=== PATIENT | female | born 1975 | race Caucasian/White ===

== ENCOUNTER 2017-08-19 15:42 | Inpatient (IN) | payer MEDICAID, OTHER ==
[~2017-08-19] VITALS: Ht 154.9 cm; Wt 71.4 kg
[~2017-08-19 15:42] MED LIST: AUGM875T28 PO; Abilify PO; BUPR15TA PO; ESCI20TA PO; LEXA1TAB PO; LEXA1TAB2 PO; LISI10TA4 PO; LISI2.5T3 GT; NECO1TAB9 PO; SERO1TAB PO; TOPA50TA8 PO; TRAZ-136 PO; VIST25CA PO
[2017-08-19] MEDS ORDERED: BUPR15TA PO (15:59)
[2017-08-19] MEDS ORDERED: BUSP5TA PO (15:59)
[2017-08-19] MEDS ORDERED: HYDR12CA PO (16:00)
[2017-08-19 18:05] LABS: MEAN CORPUSCULAR HEMOGLOBIN 34.2 pg (27.0-33.0); MEAN CORPUSCULAR HGB CONC 33.6 g/dl (32.0-36.5); MEAN CORPUSCULAR VOLUME 101.8 fl (80.0-96.0); PLATELET COUNT, AUTOMATED 354 10^3/uL (150-450); RED CELL DISTRIBUTION WIDTH 13.1 % (11.5-14.5); WHITE BLOOD COUNT 10.4 10^3/uL (4.0-10.0)
[2017-08-19] MEDS ORDERED: TYLE1TAB5 PO (18:29)
[2017-08-19] MEDS ORDERED: HYDR-3363 PO (18:29)
[2017-08-19 18:41] LABS: ALBUMIN 3.7 GM/DL (3.2-5.2); ALBUMIN/GLOBULIN RATIO 1.06 (1.00-1.93); ALKALINE PHOSPHATASE 80 U/L (45-117); ALT/SGPT 37 U/L (12-78); ANION GAP 11 MEQ/L (8-16); AST/SGOT 18 U/L (7-37); BILIRUBIN,DIRECT 0.1 MG/DL (0.0-0.2); BILIRUBIN,TOTAL 0.4 MG/DL (0.2-1.0); BLOOD UREA NITROGEN 14 MG/DL (7-18); CALCIUM LEVEL 8.6 MG/DL (8.5-10.1); CARBON DIOXIDE LEVEL 21 MEQ/L (21-32); CHLORIDE LEVEL 104 MEQ/L (98-107); CREATININE FOR GFR 0.91 MG/DL (0.55-1.02); GLOMERULAR FILTRATION RATE > 60.0 (>60); GLUCOSE, FASTING 71 MG/DL (70-105); POTASSIUM SERUM 3.9 MEQ/L (3.5-5.1); SODIUM LEVEL 136 MEQ/L (136-145); TOTAL PROTEIN 7.2 GM/DL (6.4-8.2)
[2017-08-19 19:23] LABS: METHADONE URINE NEGATIVE (NEGATIVE)
[2017-08-19] MEDS ORDERED: QUEtiapine FUMARATE 50 MG TAB PO SCH (21:00)
[2017-08-19] MEDS ORDERED: MOM 30ML SUSPENSION UDC PO PRN (22:15)
[2017-08-19] MEDS ORDERED: MAALOX 30 ML SUSP *UDC PO PRN (22:15)
[2017-08-19] MEDS ORDERED: diphenhydrAMINE 50 MG CAP PO PRN (22:15)
[2017-08-20 06:42] VITALS: BP 120/72
[2017-08-20] MEDS: hydroCHLOROthiazide 12.5 MG CAPSULE PO SCH (08:29)
[2017-08-20] MEDS: ESCITALOPRAM OXALATE 10 MG TAB (LEXAPRO) PO SCH (11:07)
--- NOTE | 2017-08-20 12:12 | MHHPEPDOC ---
General Date Of Admission: Aug 19, 2017 Legal Status: 9.39 Chief Complaint "I didn't do anything wrong, I don't need to be here" History of Present Illness HISTORY OF THE PRESENT ILLNESS: Patient is a 41 -year-old , female, who says she came to the ED hospital because her PO sent her to the ED because she didn't feel that Buspar wasn't working and she told the ED that it was not helping her, because it made her feel "high" and she thinks she shoplifted because she was on Buspar. This happened two weeks ago. She said that she didn' t have an appointment with Dr. Alicia until the 30, but she says she thinks she is not dangerous" she only was out of medications. She says she doesn't feel she 's bipolar, she thinks she is a very anxious person. She has a history of anorexia. Psychiatric Review of Systems Depression (2 or more weeks): insomnia/hypersomnia, decreased energy, difficulty concentrating, appetite changes, psychomotor changes Janis (4 or more days of): expansive mood, decreased need for sleep, still with energy, talkativity, pressured, flight of ideas, distractibility, goal- directed activities, engages in risky behavior Psychosis: denies PTSD: denies Anxiety: situational anxiety Anxiety/ 6 months or more of: restlessness, keyed up, easily fatigued, difficulty concentrating, irritability, muscle tension, sleep disturbance Past Psychiatric History Previous Psychiatric Diagnosis: She has been diagnosed as having bipolar disorder Previous Psychiatric Admissions: She was admitted here two years ago after her fiance and she spent two weeks here Suicide Attempts: Denied Psychiatric Follow-up: She follows up [facility] with Dr. Alicia and has been receiving Wellbutrin, Seroquel and Buspar Psychiatric medications: Wellbutrin, Seroquel, Buspar, Hydroxyzine Past Medical History Medical Problems Mother has type 2 diabetes, she thinks all of her family has anxiety. There's depression and cancer on her mother's side of the family Head Injury: No Seizures: Yes Hospitalizations: Yes Surgeries: Yes Family Medical/Psychiatric HX Psychiatric Disorders: Yes Addiction: No Suicide Attemps/Completions: Yes Addiction History alcohol Social History Childhood: She reports a good childhood, denies abuse, she says her family is loving, happy Abuse/Trauma: Denies, but she says she doesn't enjoy sex, it's painful for her, when she has gone to the OBGyn and the doctor has asked her if she has been raped at any time because she is always tense when she gets examined. she says she doesn't remember parts of her childhood but she can't hink of any family member touching her or abusing her but she used to go to a friend's house when she was a little kid and her friend used to talk a lot about sex even when they were just 10 years old. her mother picked her up once, from her friend's house and she told her that she was never allowed to go back in there, so she doesn't know if her mother noticed something weird going. She says she's coming from an [place] mormon family and probably the mormon beliefes influenced her sexuality but she said she became very promiscuous when she became a teen ager when she rebelled against all of this Current Living Situation: She lives with her 10 year old son. Education: HS and college ed. She has a masters Degree Employment: Employed Social Support: Her parents Legal: She has a Die Maintenance Technician for a DUI on May/2015 Marital: She's not currently , she has a 10 year old son. Mental Status Examination General Appearance: disheveled Build: average Demeanor: preoccupied, very figety Eye Contact: intense Activity: anxious Behavior: cooperative, agitated, restless Speech: rapid, pressured, normal volume Mood: anxious Affect: labile, anxious Thought Process: circumstantial Thought Content (Delusions): none reported Thought Content (Other): none reported Thought Content (Aggressive): none reported Perception (Hallucinations): none reported Perception (Other): none reported Cognition (Impairment of): none reported Cognition(Intelligence Est.): average Oriented: Awake, Alert, Oriented times three Insight: poor Judgment: Poor Diagnoses 1. Bypolar Disorder, manic 2. Generalized anxiety disorder Assessment Patient is extremely labile, her makeup is inappropriate, she has rapid speech, but she doesn't feel she is bipolar, she feels she is anxious. She is circumstantial, has an elated/labile mood. will give her Abilify, will restart her on Wellbutrin and Seroquel. patient can be discharged on Tuesday. Initial Treatment Plan 1. atluther is on a 9.39, involuntary status status. 2. Complete history was obtained. 3. With patients permission, family will be contacted and database will be expanded. 4. Patients medication regimen will be reviewed and changed accordingly. 5. Patient will be provided with protected environment. 6. Patient will be treated with individual, group, and milieu therapies. 7. Patient will receive supportive psych-education. 8. Discharge planning will commence immediately. 9. Outpatient follow-up treatment will be strongly recommended. 10. The initial treatment plan will focus initially on: * Depression. * Risk for suicide. * Substance abuse. ESTIMATED LENGTH OF STAY: 5-7DAYS. TIME SPENT COUNSELING AND COORDINATING INITIAL CARE: 60minutes. Vital Signs Vital Signs Date Time Temp Pulse Resp B/P (MAP) Pulse Ox O2 Delivery O2 Flow Rate FiO2 08/20/17 06:42 99.5 95 120/72 (88) Room Air 08/19/17 20:47 18 100 Laboratory Data 24H Labs Laboratory Tests 2 08/19/17 17:49: Nucleated Red Blood Cells % (auto) 0.0, Anion Gap 11, Glomerular Filtration Rate > 60.0, Calcium Level 8.6, Aspartate Amino Transf (AST/SGOT) 18, Alanine Aminotransferase (ALT/SGPT) 37, Alkaline Phosphatase 80, Total Bilirubin 0.4, Direct Bilirubin 0.1, Total Protein 7.2, Albumin 3.7, Albumin/Globulin Ratio 1.06, Thyroid Stimulating Hormone (TSH) 1.020, Salicylates Level < 1.7L, Urine Amphetamines Screen NEGATIVE, Urine Benzodiazepines Screen POSITIVEH, Urine Opiates Screen NEGATIVE, Urine Methadone Screen NEGATIVE, Acetaminophen Level 6.8L, Urine Barbiturates Screen NEGATIVE, Urine Phencyclidine Screen NEGATIVE, Urine Cocaine Metabolite Screen NEGATIVE, Urine Cannabinoids Screen NEGATIVE, Ethyl Alcohol Level 0.003 CBC/BMP Laboratory Tests 08/19/17 17:49 Red Blood Count 3.33 L, Mean Corpuscular Volume 101.8 H, Mean Corpuscular Hemoglobin 34.2 H, Mean Corpuscular Hemoglobin Concent 33.6, Red Cell Distribution Width 13.1 Medications Scheduled (Necon 1-35 mg-Mcg) 1 Tab Tab, 1 TAB PO DAILY, (Reported) Bupropion HCl (Wellbutrin Sr) 150 Mg Tabcr, 150 MG PO BID, (Reported) Buspirone HCl (Buspirone HCl) 5 Mg Tab, 5 MG PO BID, (Reported) Escitalopram Oxalate (Escitalopram Oxalate) 20 Mg Tab, 20 MG PO DAILY, (Reported ) Hydrochlorothiazide (Hydrochlorothiazide) 12.5 Mg Cap, 12.5 MG PO DAILY, ( Reported) Quetiapine Fumerate (Seroquel) 100 Mg Tab, 100 MG PO QHS, (Reported) Scheduled PRN (Tylenol Pm Extra Strength 500-25 mg) 1 Tab Tab, 2 TAB PO QHS PRN for SLEEP, ( Reported) Hydroxyzine HCl (Hydroxyzine HCl) 25 Mg Tab, 25 MG PO DAILY PRN for ANXIETY, ( Reported) Allergies Coded Allergies: No Known Allergies (Unverified , 11/11/14) BLANCA MARTÍNEZ MD Aug 20, 2017 12:12
[2017-08-20] MEDS: ACETAMINOPHEN TAB 650MG DOSE (2X325MG) PO PRN (17:26)
[2017-08-20 18:00] VITALS: BP 131/62
[2017-08-20] MEDS: buPROPion **SR TABLET** (ZYBAN) 150MG PO SCH (20:37)
[2017-08-20] MEDS: QUEtiapine FUMARATE 100 MG TAB PO SCH (20:38)
[2017-08-21 06:29] VITALS: BP 121/58
[2017-08-21] MEDS: buPROPion **SR TABLET** (ZYBAN) 150MG PO SCH ×2 (08:38→20:58)
[2017-08-21] MEDS: ACETAMINOPHEN TAB 650MG DOSE (2X325MG) PO PRN (08:39)
[2017-08-21] MEDS: ESCITALOPRAM OXALATE 10 MG TAB (LEXAPRO) PO SCH (08:39)
[2017-08-21] MEDS: hydroCHLOROthiazide 12.5 MG CAPSULE PO SCH (08:39)
[2017-08-21] MEDS ORDERED: INFLUENZA QUADRIVALENT PF VACCINE 0.5ML SYRINGE (90686) IM ONE (09:00)
[2017-08-21 18:00] VITALS: BP 127/61
--- NOTE | 2017-08-21 18:30 | MHIPNPDOC ---
[facility] Progress Note Progress Note DATE OF SERVICE: 08/21/17 DATE OF SERVICE: 08/21/17 HISTORY: Patient was brought to the hospital because she said she had been feeling different since she had taken Buspar. She reported extreme anxiety and she presented with pressured speech at the ED. She also reported an episode of shoplifting about 2 weeks ago and she blamed it on Buspar. She was extremely labile and tearful. VITAL SIGNS: See below. NEW TEST RESULTS: N/A CURRENT MEDICATIONS: See below. General Appearance: Dressed in personal clothes, cooperative, with good eye contact, appears stated age. Speech: rapid, pressured, normal volume Mood: she's not labile today. Not tearful and not anxious. Affect: Less anxious, calmer Thought Process: Linear, logical Thought Content (Delusions): none reported Thought Content (Other): none reported Thought Content (Aggressive): none reported Perception (Hallucinations): none reported Perception (Other): none reported Cognition (Impairment of): none reported Cognition(Intelligence Est.): average Oriented: Awake, Alert, Oriented times three Insight: Improving Judgment: Improving Diagnoses 1. Bipolar Disorder, manic 2. Generalized anxiety disorder Assement/Plan Patient is less labile, more calm. she's not tearful, not anxious.she says she has had a good day today and she knows her son is doing well. She's having a good response to medication. She probably will be leaving home soon. Vital Signs Vital Signs Date Time Temp Pulse Resp B/P (MAP) Pulse Ox O2 Delivery O2 Flow Rate FiO2 08/21/17 06:29 97.7 101 16 121/58 (79) 08/20/17 06:42 Room Air 08/19/17 20:47 100 Current Medications Current Medications Acetaminophen (Tylenol Tab) 650 mg Q6HP PRN PO HEADACHE or DISCOMFORT Last administered on 08/21/17 08:39; Start 08/19/17 at 22:15; Stop 09/18/17 at 22 :14 Al Hydrox/Mg Hydrox/Simethicone (Mylanta) 30 ml Q4HP PRN PO HEARTBURN/ INDIGESTION; Start 08/19/17 at 22:15; Stop 09/18/17 at 22:14 Aripiprazole (AbiLIFY) 2.5 mg BID PO Last administered on 08/20/17 08:29; Start 08/19/17 at 21:00; Stop 08/20/17 at 12:13; Status DC Aripiprazole (AbiLIFY) 5 mg BID PO Last administered on 08/21/17 08:39; Start 08/20/17 at 21:00; Stop 09/19/17 at 20:59 Bupropion HCl (Zyban, Wellbutrin Sr) 150 mg BID PO Last administered on 08:38; Start 08/20/17 at 21:00; Stop 09/19/17 at 20:59 Diphenhydramine HCl (Benadryl) 50 mg Q4HP PRN PO ANXIETY/AGITATION; Start at 22:15; Stop 09/18/17 at 22:14 Escitalopram Oxalate (Lexapro) 20 mg DAILY PO Last administered on 08/21/17 08:39; Start 08/20/17 at 09:00; Stop 09/19/17 at 08:59 Home Med (Med Rec Complete!) ASDIRECTED XX ; Start 08/19/17 at 18:30; Stop at 18:31; Status DC Hydrochlorothiazide (Hydrodiuril) 12.5 mg DAILY PO Last administered on 08:39; Start 08/20/17 at 09:00; Stop 09/19/17 at 08:59 Magnesium Hydroxide (Milk Of Magnesia) 30 ml DAILYPRN PRN PO CONSTIPATION; Start 08/19/17 at 22:15; Stop 09/18/17 at 22:14 Quetiapine Fumarate (SEROquel) 150 mg QHS PO Last administered on 08/19/17 22 :48; Start 08/19/17 at 21:00; Stop 08/20/17 at 12:14; Status DC Quetiapine Fumarate (SEROquel) 250 mg QHS PO Last administered on 08/20/17 20 :38; Start 08/20/17 at 21:00; Stop 09/19/17 at 20:59 Allergies Coded Allergies: No Known Allergies (Unverified , 11/11/14) BLANCA MARTÍNEZ MD Aug 21, 2017 18:30
[2017-08-21] MEDS: QUEtiapine FUMARATE 100 MG TAB PO SCH (20:58)
[2017-08-22 06:44] VITALS: BP 131/60
[2017-08-22] MEDS: buPROPion **SR TABLET** (ZYBAN) 150MG PO SCH (08:23)
[2017-08-22] MEDS: ESCITALOPRAM OXALATE 10 MG TAB (LEXAPRO) PO SCH (08:23)
[2017-08-22] MEDS: hydroCHLOROthiazide 12.5 MG CAPSULE PO SCH (08:23)
--- NOTE | 2017-08-22 10:06 | HPE ---
DATE OF ADMISSION: 08/19/2017 HISTORY OF THE PRESENT ILLNESS: Please refer to psychiatric history and evaluation for further details on this admission. This examination and history is intended for medical issues history, which may need treatment, followup or consult on this 41-year-old female. ALLERGIES: NO KNOWN DRUG ALLERGIES. SOCIAL HISTORY: She is single, lives with her 10-year-old son. EtOH she has a history of alcohol abuse. She had none for 7 years then in 2014 she relapsed and drank again. She had a driving under the influence in May of 2015, currently none. PAST MEDICAL HISTORY: Anxiety. Depression. Hypertension. PAST SURGICAL HISTORY: section. HOME MEDICATIONS: - Wellbutrin SR 150 mg by mouth twice a day - buspirone 5 mg by mouth twice a day - escitalopram 20 mg by mouth daily - hydroxyzine 20 mg by mouth daily as needed anxiety - Seroquel 100 mg by mouth at bedtime - Necon one by mouth daily - Tylenol PM extra strength 500/25 mg two by mouth at bedtime as needed for sleep - hydrochlorothiazide 12.5 mg by mouth daily LABORATORY STUDIES: CBC WBC was 10.4, hemoglobin 11.4, hematocrit 33.9, MCV was elevated at 101.8, CMP was normal. Toxicology screen showed benzodiazepines positive. REVIEW OF SYSTEMS: 10-systems review was done and was unremarkable. PHYSICAL EXAMINATION: GENERAL: 41-year-old female in no acute distress. VITAL SIGNS: Height 61 inches, weight 71.36 kg, BMI 29.7, blood pressure 128/72, pulse 95, temperature 98.7. The patient is alert and oriented times three. HEENT: Pupils equal and react to light. EOM's are intact. Cornea and sclerae are clear. Conjunctivae are normal. No facial asymmetry. Pharynx, tongue and gums are pink and moist. Tongue is midline. NECK: Supple without lymphadenopathy. No thyromegaly. No goiter. CHEST: Clear to auscultation without wheeze or retraction. HEART: Regular. ABDOMEN: Benign. Bowel sounds are positive. /RECTAL: Not done. EXTREMITIES: Show equal strength. Full [id number]. No cyanosis, clubbing or edema. Peripheral pulses are equal and palpable bilaterally. SKIN: Warm and dry. IMPRESSION/PLAN: 1. Psychiatric plan per psychiatry. 2. History of hypertension. Continue hydrochlorothiazide. 3. EKG on file. Shows sinus tachycardia 101. 4. No acute medical issues.
[2017-08-22 10:58] LABS: FOLATE > 24.0 NG/ML (>5.4)
[2017-08-22] MEDS ORDERED: QUET1TAB8 PO (11:31)
[2017-08-22] MEDS ORDERED: ARIP5TA PO (11:31)
--- NOTE | 2017-08-22 16:24 | MHDS ---
DATE OF ADMISSION: 08/19/2017 DATE OF DISCHARGE: 08/22/2017 LEGAL STATUS ON ADMISSION: 9.39 legal status. HISTORY OF THE PRESENT ILLNESS: The following information is according to the initial evaluation of Dr. Avendaño, her progress note and my own progress note. On admission, Dr. Aevndaño, wrote the patient is a 41-year-old female who came to the emergency department because her special service officer sent her since she did not feel that BuSpar was working, and she told doctors that she was feeling high and also she thinks she shoplifted because she was on BuSpar. This happened 2 weeks ago. Also said that she did not have an appointment with Dr. Alicia until 09/01/2017. She also stated that she does not feel she has bipolar disorder but that she is an "anxious person." She has a history of anorexia. She was admitted for observation and treatment. LABS ON ADMISSION: Her CBC showed WBCs of 10.4, RBC 3.33, hemoglobin of 11.4, hematocrit of 33.9, MCV of 101.8 and MCH of 34.2. The rest of the CBC was normal. CMP within normal limits. TSH within normal limits. Urine drug screen was positive for benzodiazepine. Blood alcohol level was negative. HOSPITAL COURSE: After the first evaluation, Dr. Avendaño started the patient on Abilify 5 mg by mouth twice a day, Wellbutrin 150 mg by mouth twice a day, Seroquel 250 mg by mouth nightly and Lexapro 20 mg by mouth every morning. With this medication, the patient was stabilized. The patient had no complications during this hospital admission. On 08/22/2017, the patient told me that she was feeling much better and that she could continue her treatment on an outpatient basis. The patient had no side effects from the medication. At this point, the patient denies suicidal or homicidal ideation. Denies auditory or visual hallucinations or delusions, so she does not meet criteria for involuntary hospitalization at this time. MEDICATIONS AT DISCHARGE: - Abilify 5 mg by mouth twice a day - Zyban 150 mg by mouth twice a day - Seroquel 250 mg by mouth nightly - Lexapro 20 mg by mouth every morning MENTAL STATUS EXAMINATION: At discharge, the patient is dressed in [facility]. The patient is cooperative. The patient's speech is slightly pressured but is coherent and is spontaneous. The patient has good eye contact. Mood is slightly anxious. Affect is appropriate and congruent with mood. The patient is oriented to time, place, person and situation. Maintains attention and concentration fairly. Instant recall, recent and remote memory are intact. Thought processes are coherent, logical and goal directed. The patient does not have auditory or visual hallucinations. The patient does not have paranoid, persecutory, somatic, grandiose or hindu delusions. The patient is denying suicidal or homicidal ideation. Judgment and insight are fair. DISCHARGE DIAGNOSES: AXIS I: Bipolar disorder, manic episode. Generalized anxiety disorder. AXIS II: Deferred. AXIS III: None acute. CONDITION AT DISCHARGE: Stable. The patient denies auditory or visual hallucinations. No evidence of delusions. The patient denies suicidal or homicidal ideation. INSTRUCTIONS TO THE PATIENT: The patient is to continue taking her medications as prescribed and followup appointments. She is advised to maintain absolute sobriety from drugs and alcohol. The patient has a scheduled appointment for medication management, individual psychotherapy and primary care physician.
== END 2017-08-22 16:15 | disposition home or self-care (01) | DRG 753 ==
LOC: M ED 15:42 → M ED INP 17:22 → M PSY 20:57
PROVIDERS: ADMIT Psychiatry & Neurology Psychiatry; ATTEND Psychiatry & Neurology Psychiatry
DX: F31.9 Bipolar disorder, unspecified (principal); I10 Essential (primary) hypertension; F41.1 Generalized anxiety disorder; Z79.899 Other long term (current) drug therapy

== ENCOUNTER → 2018-03-15 | Outpatient (CLI) | payer OTHER ==
[2018-03-15 09:44] LABS: BASO # 0.1 10^3/uL (0.0-0.2); BASO % 0.9 % (0.0-1.0); EOS # 0.3 10^3/uL (0.0-0.50); EOS % 5.1 % (0.0-3.0); HEMOGLOBIN 12.7 g/dl (12.0-15.5); IMMATURE GRANULOCYTE % 0.2 % (0-3.0); LYMPH # 3.4 10^3/uL (1.5-4.5); LYMPH % 61.7 % (24.0-44.0); MEAN CORPUSCULAR HEMOGLOBIN 32.8 pg (27.0-33.0); MEAN CORPUSCULAR HGB CONC 33.4 g/dl (32.0-36.5); MEAN CORPUSCULAR VOLUME 98.2 fl (80.0-96.0); MONO # 0.4 10^3/uL (0.0-0.8); MONO % 7.2 % (0.0-5.0); NEUTROPHILS # 1.4 10^3/uL (1.8-7.7); NEUTROPHILS % 24.9 % (36.0-66.0); PLATELET COUNT, AUTOMATED 297 10^3/uL (150-450); RED BLOOD COUNT 3.87 10^6/uL (4.00-5.40); WHITE BLOOD COUNT 5.5 10^3/uL (4.0-10.0)
[2018-03-15 09:57] LABS: CORTISOL AM 11.7 UG/DL (4.3-22.4); TOTAL 25(OH) VITAMIN D 19.9 NG/ML (30.0-100.0)
[2018-03-15 09:58] LABS: CHOLESTEROL LEVEL 197 MG/DL (<200); CHOLESTEROL RISK RATIO 3.862 (<5); FREE T4 0.55 NG/DL (0.76-1.46); HDL CHOLESTEROL 51 MG/DL (>40); LDL CHOLESTEROL 103.6 MG/DL (<100); NON-HDL-C 146 MG/DL; TRIGLYCERIDES LEVEL 212 MG/DL (<150)
[2018-03-15 10:34] LABS: ESTIMATED AVERAGE GLUCOSE 97 MG/DL (60-110)
[2018-03-17 14:14] LABS: Methylmalonic Acid 178 nmol/L (0-378)
== END ==
LOC: M SMT 08:23
DX: R00.0 Tachycardia, unspecified (principal); F41.8 Other specified anxiety disorders; Z13.1 Encounter for screening for diabetes mellitus; Z13.220 Encounter for screening for lipoid disorders
CPT/HCPCS: 84443

== ENCOUNTER → 2018-04-20 | Outpatient (REF) | payer OTHER ==
[2018-04-20 12:03] LABS: BASO % 0.6 % (0.0-1.0); EOS # 0.2 10^3/uL (0.0-0.50); EOS % 3.9 % (0.0-3.0); HEMATOCRIT 39.1 % (36.0-47.0); HEMOGLOBIN 12.9 g/dl (12.0-15.5); IMMATURE GRANULOCYTE % 0.2 % (0-3.0); LYMPH % 55.5 % (24.0-44.0); MEAN CORPUSCULAR HEMOGLOBIN 32.5 pg (27.0-33.0); MEAN CORPUSCULAR VOLUME 98.5 fl (80.0-96.0); MONO # 0.6 10^3/uL (0.0-0.8); MONO % 10.3 % (0.0-5.0); NEUTROPHILS # 1.6 10^3/uL (1.8-7.7); NEUTROPHILS % 29.5 % (36.0-66.0); PLATELET COUNT, AUTOMATED 323 10^3/uL (150-450); RED BLOOD COUNT 3.97 10^6/uL (4.00-5.40); WHITE BLOOD COUNT 5.4 10^3/uL (4.0-10.0)
[2018-04-20 12:40] LABS: CHOLESTEROL LEVEL 218 MG/DL (<200); CHOLESTEROL RISK RATIO 3.114 (<5); FREE T4 0.74 NG/DL (0.76-1.46); HDL CHOLESTEROL 70 MG/DL (>40); NON-HDL-C 148 MG/DL; TRIGLYCERIDES LEVEL 105 MG/DL (<150)
[2018-04-20 12:41] LABS: CORTISOL AM 18.6 UG/DL (4.3-22.4)
[2018-04-20 12:43] LABS: TOTAL 25(OH) VITAMIN D 63.8 NG/ML (30.0-100.0)
[2018-04-20 13:53] LABS: ESTIMATED AVERAGE GLUCOSE 91 MG/DL (60-110); HEMOGLOBIN A1c 4.8 %
[2018-04-26 00:08] LABS: Methylmalonic Acid 249 nmol/L (0-378)
== END ==
LOC: M SFHCPLAZ 08:35
DX: R00.0 Tachycardia, unspecified (principal); F41.8 Other specified anxiety disorders; Z13.1 Encounter for screening for diabetes mellitus; Z13.220 Encounter for screening for lipoid disorders

== ENCOUNTER → 2018-05-29 | Outpatient (REF) | payer OTHER ==
[2018-05-29 12:10] LABS: FREE T4 0.56 NG/DL (0.76-1.46)
[2018-05-29 15:03] LABS: FOLATE 21.6 NG/ML; VITAMIN B12 LEVEL 570 PG/ML
== END ==
LOC: M SFHCPLAZ 09:17
DX: E03.9 Hypothyroidism, unspecified (principal); D75.89 Other specified diseases of blood and blood-forming organs
CPT/HCPCS: 82746

== ENCOUNTER → 2018-06-26 | Outpatient (REF) | payer OTHER ==
[2018-06-26 13:26] LABS: TOTAL 25(OH) VITAMIN D 37.8 NG/ML (30.0-100.0)
[2018-06-26 13:38] LABS: FREE T4 0.56 NG/DL (0.76-1.46)
== END ==
LOC: M SFHCPLAZ 09:04
DX: E03.9 Hypothyroidism, unspecified (principal); E55.9 Vitamin D deficiency, unspecified

== ENCOUNTER → 2018-08-28 | Outpatient (CLI) | payer OTHER | LOC: M SLEEP HO 12:58 | DX: G47.30 Sleep apnea, unspecified (principal) ==

== ENCOUNTER → 2018-11-09 | Outpatient (REF) | payer OTHER ==
[~2018-11-09] MED LIST changes: +ABIL10TA9 PO; +ARIP5TA PO; +BUSP5TA PO; +HYDR-3363 PO; +HYDR12CA PO; -LISI2.5T3 GT; +LISI2.5T5 GT; +NECO1TAB2 PO; -NECO1TAB9 PO; +QUET1TAB8 PO; -TRAZ-136 PO; +TRAZ-163 PO; +TYLE1TAB5 PO
[2018-11-09 10:31] LABS: BASO % 0.7 % (0.0-1.0); EOS # 0.2 10^3/uL (0.0-0.50); EOS % 4.1 % (0.0-3.0); HEMATOCRIT 39.4 % (36.0-47.0); HEMOGLOBIN 13.1 g/dl (12.0-15.5); LYMPH # 2.6 10^3/uL (1.5-4.5); LYMPH % 48.1 % (24.0-44.0); MEAN CORPUSCULAR HEMOGLOBIN 32.5 pg (27.0-33.0); MEAN CORPUSCULAR HGB CONC 33.2 g/dl (32.0-36.5); MEAN CORPUSCULAR VOLUME 97.8 fl (80.0-96.0); MONO # 0.4 10^3/uL (0.0-0.8); MONO % 8.2 % (0.0-5.0); NEUTROPHILS # 2.1 10^3/uL (1.8-7.7); NEUTROPHILS % 38.7 % (36.0-66.0); PLATELET COUNT, AUTOMATED 307 10^3/uL (150-450); RED BLOOD COUNT 4.03 10^6/uL (4.00-5.40); WHITE BLOOD COUNT 5.3 10^3/uL (4.0-10.0)
[2018-11-09 11:02] LABS: ALBUMIN 4.2 GM/DL (3.2-5.2); ALT/SGPT 21 U/L (12-78); BILIRUBIN,TOTAL 0.4 MG/DL (0.2-1.0); BLOOD UREA NITROGEN 14 MG/DL (7-18); CALCIUM LEVEL 8.8 MG/DL (8.5-10.1); CARBON DIOXIDE LEVEL 24 MEQ/L (21-32); CHLORIDE LEVEL 107 MEQ/L (98-107); CREATININE FOR GFR 0.89 MG/DL (0.55-1.30); FREE T4 1.08 NG/DL (0.76-1.46); GLOMERULAR FILTRATION RATE > 60.0 (>58); GLUCOSE, FASTING 82 MG/DL (70-100); POTASSIUM SERUM 3.8 MEQ/L (3.5-5.1); SODIUM LEVEL 138 MEQ/L (136-145); THYROID STIMULATING HORMONE 0.043 uIU/ML (0.358-3.740); TOTAL PROTEIN 7.1 GM/DL (6.4-8.2)
== END ==
LOC: M SFHCPLAZ 08:44
PROVIDERS: ATTEND Family Medicine
DX: Z51.81 Encounter for therapeutic drug level monitoring (principal); E03.9 Hypothyroidism, unspecified

== ENCOUNTER → 2018-11-29 | Outpatient (REF) | payer OTHER ==
[2018-11-29 16:27] LABS: FREE T3 2.3 PG/ML (2.2-4.0); FREE T4 1.21 NG/DL (0.76-1.46); THYROID STIMULATING HORMONE 0.031 uIU/ML (0.358-3.740)
== END ==
LOC: M SFHCPLAZ 14:17
PROVIDERS: ATTEND Family Medicine
DX: Z83.2 Family history of diseases of the blood and blood-forming organs and certain disorders involving the immune mechanism (principal); E03.9 Hypothyroidism, unspecified

== ENCOUNTER → 2019-03-13 | Outpatient (REF) | payer OTHER ==
[~2019-03-13] MED LIST changes: +ARIP1TAB6 PO; -ARIP5TA PO; +LISI-1046 GT; -LISI2.5T5 GT
== END ==
LOC: M SFHCWAGY 13:08
PROVIDERS: ATTEND Family Medicine
DX: Z12.4 Encounter for screening for malignant neoplasm of cervix (principal)

== ENCOUNTER → 2019-04-27 | Outpatient (CLI) | payer OTHER ==
[2019-04-27 20:28] LABS: BLOOD UREA NITROGEN 16 MG/DL (7-18); CALCIUM LEVEL 8.9 MG/DL (8.5-10.1); CARBON DIOXIDE LEVEL 23 MEQ/L (21-32); CHLORIDE LEVEL 112 MEQ/L (98-107); CHOLESTEROL LEVEL 176 MG/DL (<200); CHOLESTEROL RISK RATIO 2.626 (<5); CREATININE FOR GFR 0.96 MG/DL (0.55-1.30); GLOMERULAR FILTRATION RATE > 60.0 (>58); GLUCOSE, FASTING 85 MG/DL (70-100); HDL CHOLESTEROL 67 MG/DL (>40); LDL CHOLESTEROL 93 MG/DL (<100); NON-HDL-C 109 MG/DL; POTASSIUM SERUM 4.4 MEQ/L (3.5-5.1); SODIUM LEVEL 141 MEQ/L (136-145); TRIGLYCERIDES LEVEL 81 MG/DL (<150)
[2019-04-27 20:53] LABS: HEMOGLOBIN A1c 4.9 %
[2019-04-27 21:16] LABS: HIV 1&2 SCREEN CENTAUR NEGATIVE (NEGATIVE)
[2019-04-27 22:02] LABS: CHLAMYDIA DNA AMPLIFICATION NEGATIVE (NEGATIVE); GC DNA AMPLIFICATION NEGATIVE (NEGATIVE)
== END ==
LOC: M WUC 17:38
PROVIDERS: ATTEND Family Medicine
DX: Z20.2 Contact with and (suspected) exposure to infections with a predominantly sexual mode of transmission (principal); Z13.1 Encounter for screening for diabetes mellitus; Z13.220 Encounter for screening for lipoid disorders; R30.0 Dysuria

== ENCOUNTER → 2019-06-27 | Outpatient (CLI) | payer MEDICAID | LOC: M OUTALCOH 08:28 | PROVIDERS: ATTEND Psychiatry & Neurology Psychiatry | DX: Z03.89 Encounter for observation for other suspected diseases and conditions ruled out (principal) ==

== ENCOUNTER → 2019-07-05 | Outpatient (REF) | payer MEDICAID, OTHER ==
[2019-07-06 10:45] LABS: AMORPHOUS SEDIMENT SMALL (NEGATIVE); APPEARANCE, URINE CLOUDY (CLEAR); BACTERIA, URINE AUTO 1+ (NEGATIVE); BILIRUBIN, URINE AUTO NEGATIVE (NEGATIVE); BLOOD, URINE BLOOD 2+ (NEGATIVE); CALCIUM OXALATE CRYSTALS MODERATE; COLOR, URINE YELLOW (YELLOW); GLUCOSE, URINE (UA) AUTO NEGATIVE (NEGATIVE); KETONE, URINE AUTO NEGATIVE (NEGATIVE); LEUKOCYTE ESTERASE, URINE AUTO TRACE (NEGATIVE); MUCUS, URINE SMALL (NEGATIVE); NITRITE, URINE AUTO POSITIVE (NEGATIVE); PROTEIN, URINE AUTO 2+ mg/dL (NEGATIVE); RBC, URINE AUTO 42 /HPF (0-3); SPECIFIC GRAVITY URINE AUTO 1.021 (1.002-1.035); SQUAMOUS EPITHELIAL CELL UR AU 6 /HPF (0-6); WBC, URINE AUTO 32 /HPF (0-3)
== END ==
LOC: M SFHCPLAZ 10:20
PROVIDERS: ATTEND Physician Assistant Medical
DX: R35.0 Frequency of micturition (principal)

== ENCOUNTER 2019-07-13 10:26 | Outpatient (RCR) | payer MEDICAID | END 2019-08-02 | LOC: M OUTALCOH 10:26 | PROVIDERS: ATTEND Psychiatry & Neurology Psychiatry | DX: Z03.89 Encounter for observation for other suspected diseases and conditions ruled out (principal) ==

== ENCOUNTER 2019-10-08 19:06 | Emergency (ER) | payer MEDICAID, OTHER ==
[~2019-10-08] VITALS: Ht 154.9 cm; Wt 61.4 kg
[~2019-10-08 19:06] MED LIST changes: -TRAZ-163 PO; +TRAZ-257 PO
[2019-10-08] MEDS ORDERED: TOPI50TA9 PO (19:19)
[2019-10-08] MEDS ORDERED: LEVO75TA4 PO (19:19)
[2019-10-08] MEDS ORDERED: PROP10TA56 PO (19:19)
[2019-10-08] MEDS ORDERED: DESV50TA3 PO (19:19)
[2019-10-08] MEDS ORDERED: TRAZ-252 PO (19:19)
[2019-10-08] MEDS ORDERED: MACR100C43 PO (20:55)
[2019-10-08] MEDS ORDERED: PYRI1TAB5 PO (20:55)
[2019-10-08 21:00] VITALS: BP 134/69
[2019-10-08] MEDS ORDERED: NITROFURANTOIN (MACROBID) 100 MG CAP PO ONE (21:00)
[2019-10-08] MEDS ORDERED: PHENAZOPYRIDINE 100 MG TAB PO ONE (21:00)
== END 2019-10-08 21:08 | disposition home or self-care (01) ==
LOC: M ED 19:06
DX: N30.91 Cystitis, unspecified with hematuria (principal); I10 Essential (primary) hypertension; F31.9 Bipolar disorder, unspecified; F41.9 Anxiety disorder, unspecified; Z79.899 Other long term (current) drug therapy

== ENCOUNTER → 2019-11-08 | Outpatient (REF) | payer OTHER ==
[~2019-11-08] MED LIST changes: +DESV50TA3 PO; +LEVO75TA4 PO; +MACR100C43 PO; +PROP10TA56 PO; +PYRI1TAB5 PO; +TOPI50TA9 PO; +TRAZ-252 PO
[2019-11-08 14:17] LABS: APPEARANCE, URINE CLOUDY (CLEAR); BACTERIA, URINE AUTO 2+ (NEGATIVE); BILIRUBIN, URINE AUTO NEGATIVE (NEGATIVE); BLOOD, URINE BLOOD NEGATIVE (NEGATIVE); COLOR, URINE YELLOW (YELLOW); GLUCOSE, URINE (UA) AUTO NEGATIVE (NEGATIVE); KETONE, URINE AUTO TRACE mg/dL (NEGATIVE); LEUKOCYTE ESTERASE, URINE AUTO 1+ (NEGATIVE); MUCUS, URINE SMALL (NEGATIVE); NITRITE, URINE AUTO NEGATIVE (NEGATIVE); PROTEIN, URINE AUTO 1+ mg/dL (NEGATIVE); RBC, URINE AUTO 4 /HPF (0-3); SPECIFIC GRAVITY URINE AUTO 1.028 (1.002-1.035); SQUAMOUS EPITHELIAL CELL UR AU 7 /HPF (0-6); WBC, URINE AUTO 41 /HPF (0-3)
== END ==
LOC: M LAB REF 12:58
PROVIDERS: ATTEND Physician Assistant
DX: N39.0 Urinary tract infection, site not specified (principal)

== ENCOUNTER 2020-04-17 18:21 | Emergency (ER) | payer OTHER ==
[~2020-04-17] VITALS: Ht 154.9 cm; Wt 65.8 kg
[~2020-04-17 18:21] MED LIST changes: -LISI-1046 GT; +LISI2.5T2 GT; +QUET100T2 PO; -QUET1TAB8 PO
[2020-04-17 18:22] VITALS: BP 115/65
[2020-04-17] MEDS ORDERED: ARIP1TAB6 (18:28)
[2020-04-17] MEDS ORDERED: LAMO25TA4 (18:28)
[2020-04-17] MEDS ORDERED: TRI-TAB16 (18:28)
[2020-04-17] MEDS ORDERED: MACR100C43 PO (19:38)
[2020-04-17] MEDS ORDERED: NITROFURANTOIN (MACROBID) 100 MG CAP PO ONE (19:45)
[2020-04-20] MEDS ORDERED: BACT800T5 PO (08:11)
== END 2020-04-17 19:51 | disposition home or self-care (01) ==
LOC: M ED 18:21
DX: N39.0 Urinary tract infection, site not specified (principal); Z79.899 Other long term (current) drug therapy

== ENCOUNTER → 2020-06-22 | Outpatient (REF) | payer OTHER ==
[~2020-06-22] MED LIST changes: +ARIP1TAB6; +BACT800T5 PO; +LAMO25TA4; +TRI-TAB16
[2020-06-22 15:07] LABS: APPEARANCE, URINE MANUAL CLOUDY (CLEAR); COLOR, URINE MANUAL AMBER (YELLOW)
[2020-06-22 15:08] LABS: BILIRUBIN, URINE MANUAL OBSCURED (NEGATIVE); BLOOD URINE MANUAL OBSCURED (NEGATIVE); GLUCOSE, URINE (UA) MANUAL OBSCURED mg/dL (NEGATIVE); KETONE, URINE MANUAL OBSCURED mg/dL (NEGATIVE); LEUKOCYTE ESTERASE, URINE MAN OBSCURED (NEGATIVE); NITRITE, URINE MANUAL OBSCURED (NEGATIVE); PH,URINE MAN OBSCURED UNITS (5.0 - 7.0); PROTEIN, URINE MANUAL OBSCURED mg/dL (NEGATIVE); SPECIFIC GRAVITY,URINE MANUAL 1.021 (1.002-1.035); UROBILINOGEN, URINE MANUAL OBSCURED mg/dl (NORMAL)
[2020-06-22 15:17] LABS: BACTERIA, URINE LARGE AMOUNT; SQUAMOUS EPITHELIAL CELL URINE LARGE AMOUNT /hpf (SMALL AMT); WBC, URINE TNTC /hpf (0-3)
[2020-06-22 15:18] LABS: HYALINE CAST, URINE NONE SEEN /lpf (0-1); MUCUS, URINE LARGE AMOUNT (NEGATIVE)
== END ==
LOC: M LAB REF 13:00
PROVIDERS: ATTEND Physician Assistant Medical
DX: N39.0 Urinary tract infection, site not specified (principal)

== ENCOUNTER → 2020-07-31 | Outpatient (REF) | payer OTHER ==
[2020-07-31 16:07] LABS: ALBUMIN 3.8 GM/DL (3.2-5.2); ALT/SGPT 19 U/L (12-78); BILIRUBIN,TOTAL 0.3 MG/DL (0.2-1.0); BLOOD UREA NITROGEN 9 MG/DL (7-18); CALCIUM LEVEL 9.4 MG/DL (8.5-10.1); CARBON DIOXIDE LEVEL 29 MEQ/L (21-32); CHLORIDE LEVEL 102 MEQ/L (98-107); CHOLESTEROL LEVEL 255 MG/DL (<200); CHOLESTEROL RISK RATIO 3.148 (<5); CREATININE FOR GFR 0.92 MG/DL (0.55-1.30); FREE T4 1.04 NG/DL (0.76-1.46); GLOMERULAR FILTRATION RATE > 60.0 (>58); GLUCOSE, FASTING 78 MG/DL (70-100); HDL CHOLESTEROL 81 MG/DL (>40); LDL CHOLESTEROL 145 MG/DL (<100); NON-HDL-C 174 MG/DL; POTASSIUM SERUM 4.3 MEQ/L (3.5-5.1); SODIUM LEVEL 136 MEQ/L (136-145); TOTAL PROTEIN 7.4 GM/DL (6.4-8.2); TRIGLYCERIDES LEVEL 147 MG/DL (<150)
[2020-07-31 16:10] LABS: TOTAL 25(OH) VITAMIN D 30.5 NG/ML (30.0-100.0)
== END ==
LOC: M SFHCPLAZ 13:38
PROVIDERS: ATTEND Physician Assistant
DX: E78.00 Pure hypercholesterolemia, unspecified (principal); E03.9 Hypothyroidism, unspecified; E55.9 Vitamin D deficiency, unspecified

== ENCOUNTER → 2020-10-15 | Outpatient (REF) | payer OTHER ==
[~2020-10-15] MED LIST changes: -ESCI20TA PO; +ESCI20TA16 PO
[2020-10-15 18:51] LABS: FREE T4 1.03 NG/DL (0.76-1.46); THYROID STIMULATING HORMONE 1.37 uIU/ML (0.358-3.740)
== END ==
LOC: M PLALAB 14:17
PROVIDERS: ATTEND Physician Assistant
DX: E03.9 Hypothyroidism, unspecified (principal)

== ENCOUNTER → 2021-06-19 | Outpatient (REF) | payer OTHER ==
[~2021-06-19] MED LIST changes: +LISI10TA22 PO; -LISI10TA4 PO; -LISI2.5T2 GT; +LISI2.5T9 GT
== END ==
LOC: M LAB REF 21:13
PROVIDERS: ATTEND Physician Assistant
DX: R30.0 Dysuria (principal)

== ENCOUNTER → 2022-02-05 | Outpatient (CLI) | payer OTHER ==
[2022-02-05 17:25] LABS: BASO # 0.1 10^3/uL (0.0-0.2); BASO % 0.7 % (0.0-1.0); EOS # 0.2 10^3/uL (0.0-0.5); EOS % 2.1 % (0.0-3.0); HEMATOCRIT 41.7 % (36.0-47.0); HEMOGLOBIN 13.5 g/dl (12.0-15.5); LYMPH # 3.8 10^3/uL (1.5-5.0); MEAN CORPUSCULAR HGB CONC 32.4 g/dl (32.0-36.5); MEAN CORPUSCULAR VOLUME 111.2 fl (80.0-96.0); MONO # 0.6 10^3/uL (0.0-0.8); MONO % 7.6 % (2.0-8.0); NEUTROPHILS # 3.3 10^3/uL (1.5-8.5); NEUTROPHILS % 41.5 % (36.0-66.0); PLATELET COUNT, AUTOMATED 517 10^3/uL (150-450); RED BLOOD COUNT 3.75 10^6/uL (4.00-5.40); WHITE BLOOD COUNT 8.1 10^3/uL (4.0-10.0)
[2022-02-05 17:47] LABS: HEMOGLOBIN A1c 4.7 %
[2022-02-05 18:01] LABS: ALBUMIN 3.7 GM/DL (3.2-5.2); ALT/SGPT 25 U/L (12-78); BILIRUBIN,TOTAL 0.5 MG/DL (0.2-1.0); BLOOD UREA NITROGEN 14 MG/DL (7-18); CALCIUM LEVEL 8.9 MG/DL (8.5-10.1); CARBON DIOXIDE LEVEL 17 MEQ/L (21-32); CHLORIDE LEVEL 108 MEQ/L (98-107); CREATININE FOR GFR 0.82 MG/DL (0.55-1.30); GLOMERULAR FILTRATION RATE > 60.0 (>58); GLUCOSE, FASTING 85 MG/DL (70-100); POTASSIUM SERUM 4.3 MEQ/L (3.5-5.1); SODIUM LEVEL 137 MEQ/L (136-145); TOTAL PROTEIN 7.2 GM/DL (6.4-8.2)
== END ==
LOC: M PLALAB 15:31
PROVIDERS: ATTEND Physician Assistant
DX: R06.02 Shortness of breath (principal); R63.0 Anorexia; E55.9 Vitamin D deficiency, unspecified; Z68.32 Body mass index [BMI] 32.0-32.9, adult

== ENCOUNTER → 2022-02-15 | Outpatient (REF) | payer OTHER | LOC: M SFHCPLAZ 15:06 | PROVIDERS: ATTEND Physician Assistant | DX: R63.0 Anorexia (principal) ==

== ENCOUNTER 2022-02-24 15:47 | Emergency (ER) | payer OTHER ==
[~2022-02-24] VITALS: Ht 154.9 cm; Wt 75.0 kg
[2022-02-24] MEDS ORDERED: OMEP-173 PO (16:19)
[2022-02-24] MEDS ORDERED: BUPR150T12 (16:19)
[2022-02-24 21:09] VITALS: BP 114/72
[2022-02-24 21:57] LABS: BASO # 0.1 10^3/uL (0.0-0.2); BASO % 0.8 % (0.0-1.0); EOS # 0.2 10^3/uL (0.0-0.5); EOS % 1.8 % (0.0-3.0); HEMATOCRIT 41.6 % (36.0-47.0); HEMOGLOBIN 13.9 g/dl (12.0-15.5); LYMPH # 3.4 10^3/uL (1.5-5.0); MEAN CORPUSCULAR HEMOGLOBIN 37.6 pg (27.0-33.0); MEAN CORPUSCULAR HGB CONC 33.4 g/dl (32.0-36.5); MEAN CORPUSCULAR VOLUME 112.4 fl (80.0-96.0); MONO # 0.8 10^3/uL (0.0-0.8); MONO % 9.1 % (2.0-8.0); NEUTROPHILS # 4.2 10^3/uL (1.5-8.5); PLATELET COUNT, AUTOMATED 453 10^3/uL (150-450); WHITE BLOOD COUNT 8.8 10^3/uL (4.0-10.0)
[2022-02-24] MEDS ORDERED: GI COCKTAIL 50ML BTL(HYOSCYAMINE/MAALOX/LIDOCAINE VISCOUS)(1:3:1) PO ONE (22:15)
[2022-02-24] MEDS ORDERED: NS 1,000 ML IV ONE (22:15)
[2022-02-24] MEDS ORDERED: METOCLOPRAMIDE INJ 10MG/2ML VIAL (J2765 PER 1) IV ONE (22:15)
[2022-02-24] MEDS ORDERED: SUCRALFATE 1 GM TAB PO ONE (22:15)
[2022-02-24 22:34] LABS: ALBUMIN 3.8 GM/DL (3.2-5.2); BILIRUBIN,DIRECT 0.2 MG/DL (0.0-0.2); BILIRUBIN,TOTAL 0.8 MG/DL (0.2-1.0); CALCIUM LEVEL 9.8 MG/DL (8.5-10.1); CREATININE FOR GFR 1.1 MG/DL (0.55-1.30); GLOMERULAR FILTRATION RATE 57.4 (>58); POTASSIUM SERUM 4.9 MEQ/L (3.5-5.1); TOTAL PROTEIN 7.5 GM/DL (6.4-8.2)
[2022-02-24] MEDS ORDERED: ISOVUE-370 76% 100ML VIAL As Ordered ONE (22:46)
[2022-02-25] MEDS ORDERED: NS 1,000 ML IV ONE (00:40)
[2022-02-25] MEDS ORDERED: PROMETHAZINE 25 MG TAB PO ONE (00:40)
[2022-02-25] MEDS ORDERED: PROM25TA12 PO (01:43)
== END 2022-02-25 02:14 | disposition home or self-care (01) ==
LOC: M ED 15:47
DX: U07.1 COVID-19 (principal); K80.20 Calculus of gallbladder without cholecystitis without obstruction; F41.9 Anxiety disorder, unspecified; F31.9 Bipolar disorder, unspecified; Z79.3 Long term (current) use of hormonal contraceptives; Z79.899 Other long term (current) drug therapy
CPT/HCPCS: 74177; 76705; 80048; 80076; 83690; 85025; 87486; 87581; 87633; 87798; 96361; 96374; 99284; J2765; Q9967

== ENCOUNTER → 2022-08-06 | Outpatient (CLI) | payer OTHER ==
[~2022-08-06] MED LIST changes: +BUPR150T12; +OMEP-173 PO; +PROM25TA12 PO
[2022-08-06 14:10] LABS: HEMATOCRIT 34.3 % (36.0-47.0); HEMOGLOBIN 11.2 g/dl (12.0-15.5); MEAN CORPUSCULAR HEMOGLOBIN 40.1 pg (27.0-33.0); MEAN CORPUSCULAR HGB CONC 32.7 g/dl (32.0-36.5); PLATELET COUNT, AUTOMATED 502 10^3/uL (150-450); RED BLOOD COUNT 2.79 10^6/uL (4.00-5.40); WHITE BLOOD COUNT 10.6 10^3/uL (4.0-10.0)
[2022-08-06 14:49] LABS: MEAN CORPUSCULAR VOLUME 122.9 fl (80.0-96.0)
[2022-08-06 15:29] LABS: LYMPHOCYTES 21 % (16-44); METAMYELOCYTES 2 % (0-0); MONOCYTES 4 % (0-5); MYELOCYTES 2 % (0-0); NEUTROPHILS 66 % (28-66)
[2022-08-06 15:30] LABS: ANISOCYTOSIS 1+; POLYCHROMASIA 1+
[2022-08-06 15:31] LABS: HYPOCHROMASIA 1+; PLATELET ESTIMATE INCREASED (NORMAL)
[2022-08-06 16:39] LABS: FOLATE 5.1 NG/ML
[2022-08-06 17:28] LABS: ALBUMIN 2.7 GM/DL (3.2-5.2); BILIRUBIN,DIRECT 0.1 MG/DL (0.0-0.2); BILIRUBIN,TOTAL 0.2 MG/DL (0.2-1.0); THYROID STIMULATING HORMONE 1.53 uIU/ML (0.358-3.740); TOTAL PROTEIN 6.6 GM/DL (6.4-8.2)
== END ==
LOC: M PLALAB 11:04
PROVIDERS: ATTEND Physician Assistant
DX: R06.02 Shortness of breath (principal)

== ENCOUNTER → 2022-08-11 | Outpatient (CLI) | payer OTHER | LOC: M CARPUL 15:06 | PROVIDERS: ATTEND Physician Assistant | DX: R06.02 Shortness of breath (principal) ==

== ENCOUNTER → 2022-08-17 | Outpatient (CLI) | payer OTHER ==
[2022-08-17 20:59] LABS: ALBUMIN 3.4 G/DL (3.2-5.2); BLOOD UREA NITROGEN 7 MG/DL (9-23); CALCIUM LEVEL 8.9 MG/DL (8.5-10.1); CARBON DIOXIDE LEVEL 16 MMOL/L (20-31); CHLORIDE LEVEL 104 MMOL/L (98-107); CREATININE FOR GFR 0.51 MG/DL (0.55-1.30); GLOMERULAR FILTRATION RATE > 60.0 (>58); GLUCOSE, FASTING 80 MG/DL (60-100); LIPASE 184 U/L (12-53); PHOSPHORUS LEVEL 3.4 MG/DL (2.5-4.9); POTASSIUM SERUM 4.6 MMOL/L (3.5-5.1); SODIUM LEVEL 138 MMOL/L (136-145); TOTAL PROTEIN 6.6 GM/DL (6.4-8.2)
[2022-08-20 04:10] LABS: FREE KAPPA LIGHT CHAINS SERUM 27.8 mg/L (3.3-19.4); FREE LAMBDA LIGHT CHAINS SERUM 20.9 mg/L (5.7-26.3); KAPPA/LAMBDA RATIO SERUM 1.33 (0.26-1.65)
== END ==
LOC: M PLALAB 15:03
PROVIDERS: ATTEND Physician Assistant
DX: D75.89 Other specified diseases of blood and blood-forming organs (principal); E83.52 Hypercalcemia; R10.13 Epigastric pain

== ENCOUNTER → 2022-08-31 | Outpatient (REF) | payer OTHER ==
[2022-08-31 19:05] LABS: APPEARANCE, URINE MANUAL HAZY (CLEAR)
[2022-08-31 19:06] LABS: BILIRUBIN, URINE MANUAL OBSCURED (NEGATIVE); BLOOD URINE MANUAL OBSCURED (NEGATIVE); COLOR, URINE MANUAL ORANGE (YELLOW); GLUCOSE, URINE (UA) MANUAL OBSCURED mg/dL (NEGATIVE); KETONE, URINE MANUAL OBSCURED mg/dL (NEGATIVE); LEUKOCYTE ESTERASE, URINE MAN OBSCURED (NEGATIVE); NITRITE, URINE MANUAL OBSCURED (NEGATIVE); PH,URINE MAN OBSCURED UNITS (5.0 - 7.0); PROTEIN, URINE MANUAL OBSCURED mg/dL (NEGATIVE); SPECIFIC GRAVITY,URINE MANUAL 1.026 (1.002-1.035); UROBILINOGEN, URINE MANUAL OBSCURED mg/dl (NORMAL)
[2022-08-31 20:04] LABS: BACTERIA, URINE LARGE AMOUNT; SQUAMOUS EPITHELIAL CELL URINE SMALL AMOUNT /hpf (SMALL AMT); WBC, URINE TNTC /hpf (0-3)
== END ==
LOC: M SFHCPLAZ 17:31
PROVIDERS: ATTEND Physician Assistant
DX: R10.30 Lower abdominal pain, unspecified (principal)

== ENCOUNTER → 2022-09-10 | Outpatient (CLI) | payer OTHER ==
[~2022-09-10] MED LIST changes: +PROHANCE 279.3MG/ML 15ML VIAL ONE
== END ==
LOC: M PLAIMG 07:54
PROVIDERS: ATTEND Physician Assistant
DX: R74.8 Abnormal levels of other serum enzymes (principal); R10.30 Lower abdominal pain, unspecified
CPT/HCPCS: 74183; A9576

== ENCOUNTER → 2022-09-16 | Outpatient (REF) | payer OTHER ==
[~2022-09-16] MED LIST changes: +ARIP1TAB PO; -BUPR150T12; +BUPR150T12 PO; +DESV100T3 PO; +OMEP40CA5 PO; -PROHANCE 279.3MG/ML 15ML VIAL ONE; -TRI-TAB16; +TRI-TAB16 PO
== END ==
LOC: M SFHCPLAZ 12:35
PROVIDERS: ATTEND Physician Assistant
DX: Z53.20 Procedure and treatment not carried out because of patient's decision for unspecified reasons (principal)

== ENCOUNTER 2022-10-25 01:03 | Emergency (ER) | payer OTHER ==
[~2022-10-25] VITALS: Ht 154.9 cm; Wt 59.1 kg
[2022-10-25] MEDS ORDERED: PROMETHAZINE 25MG/ML 1ML VIAL IV ONE (02:05)
[2022-10-25] MEDS ORDERED: MORPHINE 4 MG/ML 1ML VIAL IV PRN (02:05)
[2022-10-25 02:32] LABS: BASO # 0.1 10^3/uL (0.0-0.2); BASO % 0.7 % (0.0-1.0); EOS % 0.1 % (0.0-3.0); HEMATOCRIT 25.8 % (36.0-47.0); LYMPH # 1.8 10^3/uL (1.5-5.0); LYMPH % 9.1 % (24.0-44.0); MEAN CORPUSCULAR HEMOGLOBIN 35.4 pg (27.0-33.0); NEUTROPHILS # 15.3 10^3/uL (1.5-8.5); NEUTROPHILS % 77.9 % (36.0-66.0); PLATELET COUNT, AUTOMATED 611 10^3/uL (150-450); RED BLOOD COUNT 2.26 10^6/uL (4.00-5.40); WHITE BLOOD COUNT 19.6 10^3/uL (4.0-10.0)
[2022-10-25] MEDS ORDERED: NS 1,000 ML IV ONE (02:35)
[2022-10-25 02:51] LABS: LIPASE 16 U/L (12-53)
[2022-10-25 02:53] LABS: BILIRUBIN,DIRECT 0.4 MG/DL (<0.4); CPK CREATINE PHOSPHOKINASE 14.99999 U/L (34-145)
[2022-10-25 02:58] LABS: ALBUMIN 1.6 G/DL (3.2-5.2); ALKALINE PHOSPHATASE 201 U/L (46-116); ALT/SGPT 12 U/L (7.0-40); AST/SGOT 15 U/L (<34); BILIRUBIN,TOTAL 0.6 MG/DL (0.3-1.2); BLOOD UREA NITROGEN 5 MG/DL (9-23); CALCIUM LEVEL 7.5 MG/DL (8.5-10.1); CARBON DIOXIDE LEVEL 29 MMOL/L (20-31); CHLORIDE LEVEL 97 MMOL/L (98-107); CK-MB VALUE MASS < 1.0 NG/ML (<3.6); CREATININE FOR GFR 0.27 MG/DL (0.55-1.30); GLOMERULAR FILTRATION RATE > 60.0 (>58); GLUCOSE, FASTING 93 MG/DL (60-100); POTASSIUM SERUM 2.9 MMOL/L (3.5-5.1); SODIUM LEVEL 139 MMOL/L (136-145); TOTAL PROTEIN 5.4 G/DL (5.7-8.2)
[2022-10-25 03:01] LABS: MEAN CORPUSCULAR VOLUME 114.2 fl (80.0-96.0); MONO # 1.6 10^3/uL (0.0-0.8)
[2022-10-25 03:02] LABS: HCG, SERUM QUALITATIVE NEGATIVE (NEGATIVE)
[2022-10-25 03:04] LABS: PLATELET ESTIMATE INCREASED (NORMAL); POLYCHROMASIA 1+
[2022-10-25 03:05] LABS: ANISOCYTOSIS 1+; HYPOCHROMASIA 1+
[2022-10-25 03:06] LABS: STOMATOCYTES 1+
[2022-10-25 03:20] LABS: MAGNESIUM LEVEL 1.4 MG/DL (1.8-2.4)
[2022-10-25] MEDS ORDERED: KCL 10MEQ/100ML SWI (KRUN) 10 MEQ in IV 1 EA IV ONE (03:20)
[2022-10-25] MEDS ORDERED: ISOVUE-370 76% 100ML VIAL As Ordered ONE (03:27)
[2022-10-25 03:28] LABS: RSV AMPLIFICATION NEGATIVE (NEGATIVE)
[2022-10-25] MEDS ORDERED: MORPHINE SULFATE ORAL SOLN 10 MG/5 ML UD PO ONE (05:30)
[2022-10-25] MEDS ORDERED: ONDANSETRON 4MG ORAL DISINTEGRATING TAB PO ONE (05:30)
[2022-10-25] MEDS ORDERED: MAALOX 30 ML SUSP *UDC PO ONE (06:20)
[2022-10-25] MEDS ORDERED: ONDA4TAB6 PO (07:08)
[2022-10-25] MEDS ORDERED: PROM50TA4 PO (07:08)
[2022-10-25 07:38] VITALS: BP 131/82
[2022-10-26] MEDS ORDERED: ALBU8.5H INH (09:25)
[2022-10-26] MEDS ORDERED: LIDO1ADH10 TOP (09:25)
[2022-10-26] MEDS ORDERED: METR-265 PO (09:25)
[2022-10-26] MEDS ORDERED: MORP10SO2 PO (09:25)
[2022-10-26] MEDS ORDERED: TRI-TAB16 (09:25)
[2022-10-26] MEDS ORDERED: CIPR500T39 PO (09:25)
[2022-10-26] MEDS ORDERED: ONDA4TAB6 PO (12:12)
[2022-10-26] MEDS ORDERED: PROM50TA4 PO (12:12)
== END 2022-10-25 07:43 | disposition home or self-care (01) ==
LOC: M ED 01:03
DX: K85.10 Biliary acute pancreatitis without necrosis or infection (principal); I49.1 Atrial premature depolarization; R00.0 Tachycardia, unspecified; I10 Essential (primary) hypertension; E03.9 Hypothyroidism, unspecified; K21.9 Gastro-esophageal reflux disease without esophagitis; Z79.51 Long term (current) use of inhaled steroids; Z79.83 Long term (current) use of bisphosphonates; Z79.891 Long term (current) use of opiate analgesic; Z79.899 Other long term (current) drug therapy

== ENCOUNTER → 2022-11-11 | Outpatient (REF) | payer OTHER ==
[~2022-11-11] MED LIST changes: +ACET-683 PO; +ALBU8.5H INH; +CALC200T15 PO; +CIPR-249 PO; +CIPR500T39 PO; +CREO24CA PO; +DICL1PAT6 TOP; +IBUP-1022 PO; +LIDO1ADH10 TOP; +LIDO5DIS41 TOP; +MAGN400T2 PO; +METR-265 PO; +MORP10SO2 PO; +NARC1SPR NARES; +ONDA4TAB6 PO; +ONDA4TAB6 SL; +PANT40TA29 PO; +PROM50TA4 PO; +RISATAB3 PO; +TRI-TAB16
[2022-11-11 14:29] LABS: HEMATOCRIT 30.9 % (36.0-47.0); HEMOGLOBIN 9.4 g/dl (12.0-15.5); MEAN CORPUSCULAR HEMOGLOBIN 33.1 pg (27.0-33.0); MEAN CORPUSCULAR HGB CONC 30.4 g/dl (32.0-36.5); MEAN CORPUSCULAR VOLUME 108.8 fl (80.0-96.0); PLATELET COUNT, AUTOMATED 462 10^3/uL (150-450); RED BLOOD COUNT 2.84 10^6/uL (4.00-5.40); WHITE BLOOD COUNT 8.7 10^3/uL (4.0-10.0)
[2022-11-11 15:05] LABS: ALBUMIN 2.7 G/DL (3.2-5.2); ALKALINE PHOSPHATASE 290 U/L (46-116); ALT/SGPT 25 U/L (7.0-40); AST/SGOT 52 U/L (<34); BILIRUBIN,TOTAL 0.4 MG/DL (0.3-1.2); BLOOD UREA NITROGEN 17 MG/DL (9-23); CALCIUM LEVEL 9.1 MG/DL (8.5-10.1); CARBON DIOXIDE LEVEL 28 MMOL/L (20-31); CHLORIDE LEVEL 101 MMOL/L (98-107); CREATININE FOR GFR 0.44 MG/DL (0.55-1.30); GLOMERULAR FILTRATION RATE > 60.0 (>58); GLUCOSE, FASTING 76 MG/DL (60-100); MAGNESIUM LEVEL 2.1 MG/DL (1.8-2.4); PHOSPHORUS LEVEL 5.8 MG/DL (2.5-4.9); SODIUM LEVEL 135 MMOL/L (136-145); TOTAL PROTEIN 6.5 G/DL (5.7-8.2)
== END ==
LOC: M LAB REF 13:57
PROVIDERS: ATTEND Internal Medicine
DX: R04.9 Hemorrhage from respiratory passages, unspecified (principal)

== ENCOUNTER → 2022-11-16 | Outpatient (REF) | payer OTHER ==
[2022-11-16 12:51] LABS: HEMATOCRIT 31.3 % (36.0-47.0); HEMOGLOBIN 9.7 g/dl (12.0-15.5); MEAN CORPUSCULAR HEMOGLOBIN 32.4 pg (27.0-33.0); MEAN CORPUSCULAR VOLUME 104.7 fl (80.0-96.0); PLATELET COUNT, AUTOMATED 454 10^3/uL (150-450); RED BLOOD COUNT 2.99 10^6/uL (4.00-5.40); WHITE BLOOD COUNT 7.6 10^3/uL (4.0-10.0)
[2022-11-16 13:26] LABS: ALBUMIN 2.8 G/DL (3.2-5.2); ALKALINE PHOSPHATASE 271 U/L (46-116); ALT/SGPT 32 U/L (7.0-40); AST/SGOT 28 U/L (<34); BILIRUBIN,TOTAL 0.3 MG/DL (0.3-1.2); BLOOD UREA NITROGEN 18 MG/DL (9-23); CALCIUM LEVEL 9.3 MG/DL (8.5-10.1); CARBON DIOXIDE LEVEL 27 MMOL/L (20-31); CHLORIDE LEVEL 104 MMOL/L (98-107); CREATININE FOR GFR 0.42 MG/DL (0.55-1.30); GLOMERULAR FILTRATION RATE > 60.0 (>58); GLUCOSE, FASTING 94 MG/DL (60-100); POTASSIUM SERUM 4.7 MMOL/L (3.5-5.1); SODIUM LEVEL 139 MMOL/L (136-145); TOTAL PROTEIN 6.4 G/DL (5.7-8.2)
== END ==
LOC: M SHH 12:02
PROVIDERS: ATTEND Internal Medicine
DX: R04.9 Hemorrhage from respiratory passages, unspecified (principal)

== ENCOUNTER → 2022-11-22 | Outpatient (REF) | payer OTHER ==
[2022-11-22 12:55] LABS: HEMATOCRIT 32.8 % (36.0-47.0); HEMOGLOBIN 10.1 g/dl (12.0-15.5); MEAN CORPUSCULAR HEMOGLOBIN 31.4 pg (27.0-33.0); MEAN CORPUSCULAR HGB CONC 30.8 g/dl (32.0-36.5); MEAN CORPUSCULAR VOLUME 101.9 fl (80.0-96.0); PLATELET COUNT, AUTOMATED 502 10^3/uL (150-450); RED BLOOD COUNT 3.22 10^6/uL (4.00-5.40); WHITE BLOOD COUNT 8.5 10^3/uL (4.0-10.0)
[2022-11-22 13:31] LABS: ALBUMIN 2.9 G/DL (3.2-5.2); ALKALINE PHOSPHATASE 304 U/L (46-116); ALT/SGPT 57 U/L (7.0-40); AST/SGOT 46 U/L (<34); BILIRUBIN,TOTAL 0.4 MG/DL (0.3-1.2); BLOOD UREA NITROGEN 20 MG/DL (9-23); CALCIUM LEVEL 9.3 MG/DL (8.5-10.1); CARBON DIOXIDE LEVEL 27 MMOL/L (20-31); CHLORIDE LEVEL 100 MMOL/L (98-107); CREATININE FOR GFR 0.38 MG/DL (0.55-1.30); GLOMERULAR FILTRATION RATE > 60.0 (>58); GLUCOSE, FASTING 95 MG/DL (60-100); PHOSPHORUS LEVEL 6.1 MG/DL (2.5-4.9); POTASSIUM SERUM 4.6 MMOL/L (3.5-5.1); SODIUM LEVEL 135 MMOL/L (136-145); TOTAL PROTEIN 6.6 G/DL (5.7-8.2)
== END ==
LOC: M LAB REF 12:20 → M SHH 12:20
PROVIDERS: ATTEND Internal Medicine
DX: R04.9 Hemorrhage from respiratory passages, unspecified (principal)

== ENCOUNTER → 2022-11-29 | Outpatient (REF) | payer OTHER ==
[2022-11-29 17:10] LABS: HEMOGLOBIN 9.4 g/dl (12.0-15.5); MEAN CORPUSCULAR HEMOGLOBIN 30.9 pg (27.0-33.0); MEAN CORPUSCULAR HGB CONC 30.3 g/dl (32.0-36.5); PLATELET COUNT, AUTOMATED 356 10^3/uL (150-450); RED BLOOD COUNT 3.04 10^6/uL (4.00-5.40); WHITE BLOOD COUNT 7.7 10^3/uL (4.0-10.0)
[2022-11-29 17:41] LABS: ALBUMIN 2.7 G/DL (3.2-5.2); ALKALINE PHOSPHATASE 297 U/L (46-116); ALT/SGPT 48 U/L (7.0-40); AST/SGOT 46 U/L (<34); BILIRUBIN,TOTAL 0.2 MG/DL (0.3-1.2); BLOOD UREA NITROGEN 27 MG/DL (9-23); CALCIUM LEVEL 8.9 MG/DL (8.5-10.1); CARBON DIOXIDE LEVEL 26 MMOL/L (20-31); CHLORIDE LEVEL 102 MMOL/L (98-107); CREATININE FOR GFR 0.53 MG/DL (0.55-1.30); GLOMERULAR FILTRATION RATE > 60.0 (>58); GLUCOSE, FASTING 76 MG/DL (60-100); PHOSPHORUS LEVEL 6.1 MG/DL (2.5-4.9); POTASSIUM SERUM 4.6 MMOL/L (3.5-5.1); SODIUM LEVEL 134 MMOL/L (136-145); TOTAL PROTEIN 5.9 G/DL (5.7-8.2)
== END ==
LOC: M SHH 16:49
PROVIDERS: ATTEND Physician Assistant
DX: E03.9 Hypothyroidism, unspecified (principal); K86.1 Other chronic pancreatitis

== ENCOUNTER 2022-12-01 11:28 | Inpatient (IN) | payer OTHER ==
[~2022-12-01] VITALS: Ht 154.9 cm; Wt 55.7 kg
[~2022-12-01 11:28] MED LIST changes: +TOPI-254 PO; -TOPI50TA9 PO
[2022-12-01 12:45] LABS: PROTHROMBIN TIME 13.4 SECONDS (12.5-14.5)
[2022-12-01 12:46] LABS: BASO % 0.5 % (0.0-1.0); EOS # 0.2 10^3/uL (0.0-0.5); EOS % 2.2 % (0.0-3.0); HEMATOCRIT 30.6 % (36.0-47.0); HEMOGLOBIN 9.7 g/dl (12.0-15.5); LYMPH # 1.7 10^3/uL (1.5-5.0); LYMPH % 20.3 % (24.0-44.0); MEAN CORPUSCULAR HEMOGLOBIN 31.6 pg (27.0-33.0); MEAN CORPUSCULAR HGB CONC 31.7 g/dl (32.0-36.5); MEAN CORPUSCULAR VOLUME 99.7 fl (80.0-96.0); MONO # 0.7 10^3/uL (0.0-0.8); NEUTROPHILS # 5.6 10^3/uL (1.5-8.5); NEUTROPHILS % 68.4 % (36.0-66.0); PLATELET COUNT, AUTOMATED 323 10^3/uL (150-450); RED BLOOD COUNT 3.07 10^6/uL (4.00-5.40); WHITE BLOOD COUNT 8.2 10^3/uL (4.0-10.0)
[2022-12-01] MEDS ORDERED: ISOVUE-370 76% 100ML VIAL As Ordered ONE (12:49)
[2022-12-01] MEDS ORDERED: TRAZ1TAB14 PO (13:24)
[2022-12-01] MEDS ORDERED: FOLI1TAB11 PO (13:24)
[2022-12-01] MEDS ORDERED: IBUP-1022 PO (13:24)
[2022-12-01] MEDS ORDERED: B-1100TA2 PO (13:24)
[2022-12-01] MEDS ORDERED: VITA500064 PO (13:24)
[2022-12-01] MEDS ORDERED: GABA-282 (13:24)
[2022-12-01 13:35] LABS: ETHYL ALCOHOL (ETHANOL) < 0.003 % (0.000-0.010)
[2022-12-01 13:36] LABS: CPK CREATINE PHOSPHOKINASE 28 U/L (34-145)
[2022-12-01 13:55] LABS: ALBUMIN 2.9 G/DL (3.2-5.2); ALKALINE PHOSPHATASE 353 U/L (46-116); ALT/SGPT 59 U/L (7.0-40); AST/SGOT 53 U/L (<34); BILIRUBIN,DIRECT 0.1 MG/DL (<0.4); BILIRUBIN,TOTAL 0.3 MG/DL (0.3-1.2); BLOOD UREA NITROGEN 14 MG/DL (9-23); CALCIUM LEVEL 9.1 MG/DL (8.5-10.1); CARBON DIOXIDE LEVEL 24 MMOL/L (20-31); CHLORIDE LEVEL 105 MMOL/L (98-107); CK-MB VALUE MASS 1.4 NG/ML (<3.6); CREATININE FOR GFR 0.49 MG/DL (0.55-1.30); FREE T4 0.99 NG/DL (0.89-1.76); GLOMERULAR FILTRATION RATE > 60.0 (>58); GLUCOSE, FASTING 87 MG/DL (60-100); POTASSIUM SERUM 3.9 MMOL/L (3.5-5.1); SODIUM LEVEL 140 MMOL/L (136-145); THYROID STIMULATING HORMONE 2.706 uIU/ML (0.55-4.78); TOTAL PROTEIN 6.2 G/DL (5.7-8.2)
[2022-12-01 13:57] LABS: RSV AMPLIFICATION NEGATIVE (NEGATIVE)
[2022-12-01] MEDS ORDERED: THIAMINE 200MG 2ML VIAL IV ONE ×2 (14:05→21:05)
[2022-12-01 14:29] LABS: AMPHETAMINES LEVEL URINE NEGATIVE (NEGATIVE); BARBITURATES URINE NEGATIVE (NEGATIVE); BENZODIAZEPINES URINE NEGATIVE (NEGATIVE); CANNABINOIDS URINE NEGATIVE (NEGATIVE); COCAINE METABOLITE URINE NEGATIVE (NEGATIVE); METHADONE URINE NEGATIVE (NEGATIVE); PHENCYCLIDINE URINE NEGATIVE (NEGATIVE)
[2022-12-01 14:30] LABS: OPIATES URINE POSITIVE (NEGATIVE)
[2022-12-01 16:26] LABS: CHOLESTEROL RISK RATIO 3.95 (<5); HDL CHOLESTEROL 32.6 MG/DL (>40); LDL CHOLESTEROL 77.2 MG/DL (<100)
[2022-12-01 16:27] LABS: PERCENT SATURATION 5.7 % (13.2-45.0)
[2022-12-01 16:31] LABS: FOLATE 10.24 NG/ML (>5.4)
[2022-12-01 16:40] LABS: HCG, SERUM QUALITATIVE NEGATIVE (NEGATIVE)
[2022-12-01 16:44] VITALS: BP 122/71
[2022-12-01] MEDS ORDERED: GABA-1171 PO (17:21)
[2022-12-01] MEDS ORDERED: HOME MED LIST COMPLETE! XX SCH (17:25)
[2022-12-01] MEDS ORDERED: MORPHINE SULFATE ORAL SOLN 10 MG/5 ML UD PO PRN ×2 (17:45→23:45)
[2022-12-01] MEDS ORDERED: ACETAMINOPHEN 500 MG TAB PO PRN (17:45)
[2022-12-01] MEDS ORDERED: ALBUTEROL 90 MCG/ACT 8GM HFA INHALER INH PRN (17:45)
[2022-12-01] MEDS ORDERED: DICLOFENAC EPOLAMINE 1.3% PATCH TOP PRN (17:45)
[2022-12-01] MEDS ORDERED: ONDANSETRON 4MG ORAL DISINTEGRATING TAB PO PRN (17:45)
[2022-12-01] MEDS: RIVAROXABAN 10MG TAB (XARELTO) PO SCH (18:00)
[2022-12-01] MEDS: ASPIRIN 325 MG TAB PO SCH (18:01)
[2022-12-01] MEDS: FOLIC ACID 1MG TAB PO SCH (18:01)
[2022-12-01] MEDS ORDERED: DICL1PAT6 TD (18:11)
[2022-12-01 20:00] VITALS: BP 122/55
[2022-12-01] MEDS: traZODone 50 MG TAB PO SCH (20:26)
[2022-12-01] MEDS: PROMETHAZINE 25 MG TAB PO SCH (20:26)
[2022-12-01] MEDS: CREON-24 CAPSULE PO SCH (20:26)
[2022-12-01] MEDS: MAGNESIUM OXIDE 400MG TAB (MAG-OX) PO SCH (20:26)
[2022-12-01] MEDS ORDERED: GABAPENTIN 100 MG CAP PO SCH (21:00)
[2022-12-01] MEDS ORDERED: OLANZapine INTRAMUSCULAR 10MG VIAL IM ONE (21:05)
[2022-12-01] MEDS: MORPHINE 10 MG/ML 1ML VIAL IV PRN (22:51)
[2022-12-02] VITALS (12 sets, daily range): BP systolic 113–131; BP diastolic 64–79
[2022-12-02] MEDS ORDERED: D5W/0.9% SODIUM CHLORIDE 1,000 ML IV SCH (04:20)
[2022-12-02] MEDS: MORPHINE 10 MG/ML 1ML VIAL IV PRN ×3 (05:04→16:29)
[2022-12-02] MEDS: LEVOTHYROXINE 75MCG TABLET (0.075MG) PO SCH (05:25)
[2022-12-02 06:07] LABS: BLOOD UREA NITROGEN 12 MG/DL (9-23); CALCIUM LEVEL 8.7 MG/DL (8.5-10.1); CARBON DIOXIDE LEVEL 22 MMOL/L (20-31); CHLORIDE LEVEL 107 MMOL/L (98-107); CREATININE FOR GFR 0.44 MG/DL (0.55-1.30); GLOMERULAR FILTRATION RATE > 60.0 (>58); GLUCOSE, FASTING 82 MG/DL (60-100); MAGNESIUM LEVEL 1.6 MG/DL (1.8-2.4); POTASSIUM SERUM 3.9 MMOL/L (3.5-5.1); SODIUM LEVEL 141 MMOL/L (136-145)
[2022-12-02 06:11] LABS: HEMATOCRIT 28.2 % (36.0-47.0); HEMOGLOBIN 8.8 g/dl (12.0-15.5); MEAN CORPUSCULAR HEMOGLOBIN 30.8 pg (27.0-33.0); MEAN CORPUSCULAR HGB CONC 31.2 g/dl (32.0-36.5); MEAN CORPUSCULAR VOLUME 98.6 fl (80.0-96.0); PLATELET COUNT, AUTOMATED 303 10^3/uL (150-450); RED BLOOD COUNT 2.86 10^6/uL (4.00-5.40); WHITE BLOOD COUNT 8.2 10^3/uL (4.0-10.0)
[2022-12-02] MEDS: CREON-24 CAPSULE PO SCH ×3 (07:28→18:51)
[2022-12-02] MEDS: ATORVASTATIN 20 MG TAB PO SCH (10:46)
[2022-12-02] MEDS: MAGNESIUM OXIDE 400MG TAB (MAG-OX) PO SCH ×3 (10:46→20:54)
[2022-12-02] MEDS: ASPIRIN 325 MG TAB PO SCH (10:46)
[2022-12-02] MEDS: GABAPENTIN 100 MG CAP PO SCH ×3 (10:47→20:54)
[2022-12-02] MEDS: PANTOPRAZOLE 40MG TAB (PROTONIX) PO SCH (10:47)
[2022-12-02] MEDS: PROMETHAZINE 25 MG TAB PO SCH ×3 (10:50→20:55)
[2022-12-02] MEDS: FOLIC ACID 1MG TAB PO SCH (10:52)
[2022-12-02] MEDS ORDERED: FERRIC CARBOXYMALTOSE INJ 750 MG, VIAL MATE ADAPTER 1 EACH in NS 250 ML IV ONE (12:00)
[2022-12-02] MEDS ORDERED: SODIUM CHLORIDE 0.9% INJ 10 ML SYR IV PRN (14:25)
[2022-12-02] MEDS ORDERED: BACITRACIN OINTMENT 30GM TUBE TOP ONE (15:30)
[2022-12-02] MEDS ORDERED: SODIUM CHLORIDE 0.9% INJ 10 ML SYR IV SCH (18:00)
[2022-12-02] MEDS: RIVAROXABAN 10MG TAB (XARELTO) PO SCH (18:51)
[2022-12-02] MEDS: traZODone 50 MG TAB PO SCH (20:54)
[2022-12-03] MEDS: IBUPROFEN 600MG TAB PO PRN ×2 (03:35→14:26)
[2022-12-03 03:36] VITALS: BP 130/77
[2022-12-03] MEDS: MORPHINE 10 MG/ML 1ML VIAL IV PRN (04:43)
[2022-12-03] MEDS: LEVOTHYROXINE 75MCG TABLET (0.075MG) PO SCH (05:23)
[2022-12-03 05:35] LABS: BASO % 0.6 % (0.0-1.0); EOS # 0.2 10^3/uL (0.0-0.5); HEMATOCRIT 28.8 % (36.0-47.0); HEMOGLOBIN 9.2 g/dl (12.0-15.5); LYMPH # 1.2 10^3/uL (1.5-5.0); LYMPH % 19.7 % (24.0-44.0); MEAN CORPUSCULAR HEMOGLOBIN 31.3 pg (27.0-33.0); MEAN CORPUSCULAR HGB CONC 31.9 g/dl (32.0-36.5); MONO # 0.5 10^3/uL (0.0-0.8); MONO % 8.5 % (2.0-8.0); NEUTROPHILS # 4.2 10^3/uL (1.5-8.5); NEUTROPHILS % 67.6 % (36.0-66.0); PLATELET COUNT, AUTOMATED 280 10^3/uL (150-450); RED BLOOD COUNT 2.94 10^6/uL (4.00-5.40); WHITE BLOOD COUNT 6.3 10^3/uL (4.0-10.0)
[2022-12-03 06:06] LABS: ALBUMIN 2.7 G/DL (3.2-5.2); ALKALINE PHOSPHATASE 258 U/L (46-116); ALT/SGPT 42 U/L (7.0-40); AST/SGOT 33 U/L (<34); BILIRUBIN,TOTAL 0.3 MG/DL (0.3-1.2); BLOOD UREA NITROGEN 7 MG/DL (9-23); CALCIUM LEVEL 8.5 MG/DL (8.5-10.1); CARBON DIOXIDE LEVEL 22 MMOL/L (20-31); CHLORIDE LEVEL 107 MMOL/L (98-107); GLOMERULAR FILTRATION RATE > 60.0 (>58); GLUCOSE, FASTING 88 MG/DL (60-100); POTASSIUM SERUM 3.9 MMOL/L (3.5-5.1); SODIUM LEVEL 140 MMOL/L (136-145); TOTAL PROTEIN 5.9 G/DL (5.7-8.2)
[2022-12-03 07:31] VITALS: BP 133/78
[2022-12-03] MEDS ORDERED: GABAPENTIN 300 MG CAP PO SCH (09:00)
[2022-12-03] MEDS ORDERED: LIDOCAINE 5% (LIDODERM) PATCH TD SCH (09:00)
[2022-12-03] MEDS ORDERED: KETOROLAC 30 MG/ML 1ML VIAL IV PRN ×2 (09:50)
[2022-12-03] MEDS ORDERED: ATOR1TAB21 PO (09:54)
[2022-12-03] MEDS ORDERED: DICL1PAT6 TD (09:54)
[2022-12-03] MEDS ORDERED: GABA-282 PO (09:54)
[2022-12-03] MEDS ORDERED: B-1100TA2 PO (09:54)
[2022-12-03] MEDS ORDERED: LIDO5TD TD (09:54)
[2022-12-03] MEDS ORDERED: MORP10SO2 PO (09:54)
[2022-12-03] MEDS ORDERED: ASPI81CH33 PO (09:54)
[2022-12-03] MEDS: CREON-24 CAPSULE PO SCH ×2 (10:30→12:40)
[2022-12-03] MEDS: ASPIRIN 325 MG TAB PO SCH (10:42)
[2022-12-03] MEDS: PROMETHAZINE 25 MG TAB PO SCH (10:43)
[2022-12-03] MEDS: ATORVASTATIN 20 MG TAB PO SCH (10:43)
[2022-12-03] MEDS: MAGNESIUM OXIDE 400MG TAB (MAG-OX) PO SCH (10:44)
[2022-12-03] MEDS: FOLIC ACID 1MG TAB PO SCH (10:44)
[2022-12-03] MEDS: PANTOPRAZOLE 40MG TAB (PROTONIX) PO SCH (10:44)
[2022-12-03] MEDS ORDERED: ACETAMINOPHEN 500 MG TAB PO SCH (12:00)
[2022-12-03 12:11] VITALS: BP 140/78
[2022-12-05] MEDS ORDERED: MAGNESIUM OXIDE 400MG TAB (MAG-OX) PO SCH (09:00)
== END 2022-12-03 14:35 | disposition home or self-care (01) | DRG 421 ==
LOC: M ED 11:28 → M ED INP 15:09 → ENRESERV 16:04 → M PCU 16:55
PROVIDERS: ADMIT Student in an Organized Health Care Education/Training Program; ATTEND Student in an Organized Health Care Education/Training Program
DX: E51.2 Wernicke's encephalopathy (principal); K86.3 Pseudocyst of pancreas; G45.9 Transient cerebral ischemic attack, unspecified; R47.01 Aphasia; K86.1 Other chronic pancreatitis; D64.9 Anemia, unspecified; E03.9 Hypothyroidism, unspecified; F31.9 Bipolar disorder, unspecified; F32.A Depression, unspecified; F41.9 Anxiety disorder, unspecified; K21.9 Gastro-esophageal reflux disease without esophagitis; R11.2 Nausea with vomiting, unspecified; Z79.899 Other long term (current) drug therapy; Z79.82 Long term (current) use of aspirin

== ENCOUNTER → 2022-12-14 | Outpatient (REF) | payer OTHER ==
[~2022-12-14] MED LIST changes: +ASPI81CH33 PO; +ATOR1TAB21 PO; +B-1100TA2 PO; +DICL1PAT6 TD; +FOLI1TAB11 PO; +GABA-1171 PO; +GABA-282; +GABA-282 PO; +LIDO5TD TD; +TRAZ1TAB14 PO; +VITA500064 PO
[2022-12-14 15:22] LABS: BASO % 0.6 % (0.0-1.0); EOS # 0.2 10^3/uL (0.0-0.5); HEMATOCRIT 37.3 % (36.0-47.0); HEMOGLOBIN 11.4 g/dl (12.0-15.5); LYMPH # 1.2 10^3/uL (1.5-5.0); LYMPH % 22.9 % (24.0-44.0); MEAN CORPUSCULAR HGB CONC 30.6 g/dl (32.0-36.5); MEAN CORPUSCULAR VOLUME 101.4 fl (80.0-96.0); MONO # 0.4 10^3/uL (0.0-0.8); MONO % 8.1 % (2.0-8.0); NEUTROPHILS # 3.4 10^3/uL (1.5-8.5); NEUTROPHILS % 63.8 % (36.0-66.0); PLATELET COUNT, AUTOMATED 408 10^3/uL (150-450); RED BLOOD COUNT 3.68 10^6/uL (4.00-5.40); WHITE BLOOD COUNT 5.3 10^3/uL (4.0-10.0)
[2022-12-14 15:59] LABS: ALBUMIN 3.1 G/DL (3.2-5.2); ALKALINE PHOSPHATASE 148 U/L (46-116); ALT/SGPT 19 U/L (7.0-40); AST/SGOT 33 U/L (<34); BILIRUBIN,TOTAL 0.2 MG/DL (0.3-1.2); BLOOD UREA NITROGEN 9 MG/DL (9-23); CALCIUM LEVEL 8.6 MG/DL (8.5-10.1); CARBON DIOXIDE LEVEL 28 MMOL/L (20-31); CHLORIDE LEVEL 106 MMOL/L (98-107); FREE T4 1.24 NG/DL (0.89-1.76); GLOMERULAR FILTRATION RATE > 60.0 (>58); GLUCOSE, FASTING 112 MG/DL (60-100); MAGNESIUM LEVEL 1.9 MG/DL (1.8-2.4); POTASSIUM SERUM 4.6 MMOL/L (3.5-5.1); SODIUM LEVEL 140 MMOL/L (136-145); THYROID STIMULATING HORMONE 0.329 uIU/ML (0.55-4.78); TOTAL PROTEIN 6.1 G/DL (5.7-8.2); VITAMIN B12 LEVEL 932 PG/ML (211-911)
== END ==
LOC: M SHH 14:56
PROVIDERS: ATTEND Physician Assistant
DX: R11.2 Nausea with vomiting, unspecified (principal); E83.42 Hypomagnesemia; G62.9 Polyneuropathy, unspecified

== ENCOUNTER → 2023-03-30 | Outpatient (CLI) | payer OTHER ==
[~2023-03-30] MED LIST changes: -VITA500064 PO; +VITA500065 PO
[2023-03-30 17:30] LABS: C REACTIVE PROTEIN QUANTITATIV < 0.40 MG/DL (<1.0)
[2023-03-30 17:31] LABS: BASO # 0.1 10^3/uL (0.0-0.2); BASO % 1.1 % (0.0-1.0); EOS # 0.1 10^3/uL (0.0-0.5); EOS % 1.7 % (0.0-3.0); HEMATOCRIT 43.3 % (36.0-47.0); HEMOGLOBIN 13.9 g/dl (12.0-15.5); LYMPH # 2.2 10^3/uL (1.5-5.0); LYMPH % 34.5 % (24.0-44.0); MEAN CORPUSCULAR HEMOGLOBIN 31.2 pg (27.0-33.0); MEAN CORPUSCULAR HGB CONC 32.1 g/dl (32.0-36.5); MEAN CORPUSCULAR VOLUME 97.3 fl (80.0-96.0); MONO # 0.5 10^3/uL (0.0-0.8); MONO % 7.5 % (2.0-8.0); NEUTROPHILS # 3.5 10^3/uL (1.5-8.5); NEUTROPHILS % 54.6 % (36.0-66.0); PLATELET COUNT, AUTOMATED 242 10^3/uL (150-450); RED BLOOD COUNT 4.45 10^6/uL (4.00-5.40); WHITE BLOOD COUNT 6.4 10^3/uL (4.0-10.0)
[2023-03-30 17:32] LABS: ALBUMIN 3.9 G/DL (3.2-5.2); ALKALINE PHOSPHATASE 102 U/L (46-116); ALT/SGPT 28 U/L (7.0-40); AST/SGOT 16 U/L (<34); BILIRUBIN,TOTAL 0.4 MG/DL (0.3-1.2); BLOOD UREA NITROGEN 12 MG/DL (9-23); CALCIUM LEVEL 10.1 MG/DL (8.5-10.1); CARBON DIOXIDE LEVEL 30 MMOL/L (20-31); CHLORIDE LEVEL 101 MMOL/L (98-107); CHOLESTEROL LEVEL 257 MG/DL (<200); CHOLESTEROL RISK RATIO 3.49 (<5); CREATININE FOR GFR 0.71 MG/DL (0.55-1.30); GLOMERULAR FILTRATION RATE > 60.0 (>58); GLUCOSE, FASTING 85 MG/DL (60-100); HDL CHOLESTEROL 73.5 MG/DL (>40); LDL CHOLESTEROL 146.9 MG/DL (<100); NON-HDL-C 183.5 MG/DL; POTASSIUM SERUM 4.7 MMOL/L (3.5-5.1); SODIUM LEVEL 134 MMOL/L (136-145); TOTAL PROTEIN 7.6 G/DL (5.7-8.2); TRIGLYCERIDES LEVEL 183 MG/DL (<150)
[2023-03-30 17:33] LABS: FREE T4 1.23 NG/DL (0.89-1.76)
[2023-03-30 17:34] LABS: FERRITIN 40.4 NG/ML (7.3-270.7); THYROID STIMULATING HORMONE 0.451 uIU/ML (0.55-4.78); TOTAL 25(OH) VITAMIN D 31.3 NG/ML (20.0-100.0); VITAMIN B12 LEVEL 744 PG/ML (211-911)
[2023-03-30 17:39] LABS: ERYTHROCYTE SEDIMENTATION RATE 17 mm/hr (0-20)
[2023-03-31 16:25] LABS: MAGNESIUM LEVEL 2.2 MG/DL (1.8-2.4)
== END ==
LOC: M PLALAB 14:42
PROVIDERS: ATTEND Physician Assistant
DX: R53.83 Other fatigue (principal)

== ENCOUNTER → 2024-03-14 | Outpatient (CLI) | payer OTHER ==
[~2024-03-14] MED LIST changes: +ONDA-282 PO; +ONDA-282 SL; -ONDA4TAB6 PO; -ONDA4TAB6 SL; +TOPI-21 PO; -TOPI-254 PO
[2024-03-14 15:32] LABS: BASO % 0.5 % (0.0-1.0); EOS # 0.1 10^3/uL (0.0-0.5); EOS % 0.7 % (0.0-3.0); HEMATOCRIT 41.1 % (36.0-47.0); HEMOGLOBIN 13.8 g/dl (12.0-15.5); LYMPH # 2.9 10^3/uL (1.5-5.0); LYMPH % 32.2 % (24.0-44.0); MEAN CORPUSCULAR HEMOGLOBIN 37.8 pg (27.0-33.0); MEAN CORPUSCULAR HGB CONC 33.6 g/dl (32.0-36.5); MEAN CORPUSCULAR VOLUME 112.6 fl (80.0-96.0); MONO # 0.7 10^3/uL (0.0-0.8); NEUTROPHILS # 5.2 10^3/uL (1.5-8.5); NEUTROPHILS % 57.9 % (36.0-66.0); PLATELET COUNT, AUTOMATED 298 10^3/uL (150-450); RED BLOOD COUNT 3.65 10^6/uL (4.00-5.40); WHITE BLOOD COUNT 8.9 10^3/uL (4.0-10.0)
[2024-03-14 15:38] LABS: FREE T4 1.78 NG/DL (0.89-1.76)
[2024-03-14 15:39] LABS: THYROID STIMULATING HORMONE 0.087 uIU/ML (0.55-4.78)
[2024-03-14 15:40] LABS: ALBUMIN 4.3 G/DL (3.2-5.2); ALKALINE PHOSPHATASE 94 U/L (46-116); ALT/SGPT 27 U/L (7.0-40); AST/SGOT 11 U/L (<34); BILIRUBIN,TOTAL 0.5 MG/DL (0.3-1.2); BLOOD UREA NITROGEN 26 MG/DL (9-23); CALCIUM LEVEL 9.3 MG/DL (8.5-10.1); CARBON DIOXIDE LEVEL 20 MMOL/L (20-31); CHLORIDE LEVEL 106 MMOL/L (98-107); CREATININE FOR GFR 0.64 MG/DL (0.55-1.30); GLOMERULAR FILTRATION RATE > 60.0 (>58); GLUCOSE, FASTING 85 MG/DL (60-100); POTASSIUM SERUM 4.8 MMOL/L (3.5-5.1); SODIUM LEVEL 137 MMOL/L (136-145); TOTAL PROTEIN 7.6 G/DL (5.7-8.2)
[2024-03-14 15:42] LABS: VITAMIN B12 LEVEL 1155 PG/ML (211-911)
== END ==
LOC: M PLALAB 11:54
PROVIDERS: ATTEND Physician Assistant
DX: E83.42 Hypomagnesemia (principal); E83.52 Hypercalcemia; E03.9 Hypothyroidism, unspecified; E53.8 Deficiency of other specified B group vitamins; E51.9 Thiamine deficiency, unspecified

== ENCOUNTER → 2024-04-27 | Outpatient (CLI) | payer OTHER ==
[2024-04-27 15:33] LABS: BASO % 0.7 % (0.0-1.0); EOS # 0.1 10^3/uL (0.0-0.5); EOS % 2.2 % (0.0-3.0); HEMATOCRIT 40.6 % (36.0-47.0); HEMOGLOBIN 13.7 g/dl (12.0-15.5); LYMPH # 1.8 10^3/uL (1.5-5.0); LYMPH % 39.5 % (24.0-44.0); MEAN CORPUSCULAR HGB CONC 33.7 g/dl (32.0-36.5); MEAN CORPUSCULAR VOLUME 112.5 fl (80.0-96.0); MONO # 0.4 10^3/uL (0.0-0.8); MONO % 9.4 % (2.0-8.0); NEUTROPHILS # 2.1 10^3/uL (1.5-8.5); NEUTROPHILS % 47.8 % (36.0-66.0); PLATELET COUNT, AUTOMATED 264 10^3/uL (150-450); RED BLOOD COUNT 3.61 10^6/uL (4.00-5.40); WHITE BLOOD COUNT 4.5 10^3/uL (4.0-10.0)
[2024-04-27 15:34] LABS: PERCENT SATURATION 20.2 % (13.2-45.0)
[2024-04-27 15:38] LABS: FERRITIN 49.2 NG/ML (7.3-270.7); FREE T4 0.96 NG/DL (0.89-1.76)
[2024-04-27 15:39] LABS: FOLLICLE STIMULATING HORMONE 20.8 mIU/ML; THYROID STIMULATING HORMONE 2.901 uIU/ML (0.55-4.78)
[2024-04-27 15:40] LABS: TOTAL 25(OH) VITAMIN D 14.6 NG/ML (20.0-100.0)
[2024-04-27 15:53] LABS: HEMOGLOBIN A1c 4.6 % (4.0-6.0)
== END ==
LOC: M PLALAB 12:37
PROVIDERS: ATTEND Physician Assistant
DX: R53.83 Other fatigue (principal); N92.6 Irregular menstruation, unspecified; E55.9 Vitamin D deficiency, unspecified; E03.9 Hypothyroidism, unspecified; R10.84 Generalized abdominal pain; Z87.19 Personal history of other diseases of the digestive system

== ENCOUNTER 2024-09-06 07:29 | Emergency (ER) | payer BC, OTHER ==
[~2024-09-06] VITALS: Ht 154.9 cm; Wt 75.1 kg
[~2024-09-06 07:29] MED LIST changes: +GABA-1172; +GABA-1172 PO; -GABA-282; -GABA-282 PO
[2024-09-06] MEDS ORDERED: AMOX875T2 PO (09:04)
[2024-09-06] MEDS ORDERED: PRED20TA PO (09:07)
[2024-09-06 09:13] VITALS: BP 128/77; TEMP 98.9; O2SAT 96
[2024-09-06] MEDS: BOOSTRIX VACCINE (TETANUS/DIPHTH/ACEL. PERTUSSIS) 0.5ML SYR IM.IMMUN ONE (09:13)
== END 2024-09-06 09:23 | disposition home or self-care (01) ==
LOC: M ED 07:29
DX: R22.32 Localized swelling, mass and lump, left upper limb (principal); W55.01XA Bitten by cat, initial encounter; K21.9 Gastro-esophageal reflux disease without esophagitis; E03.9 Hypothyroidism, unspecified; E55.9 Vitamin D deficiency, unspecified; F41.9 Anxiety disorder, unspecified; Y92.009 Unspecified place in unspecified non-institutional (private) residence as the place of occurrence of the external cause; Y93.89 Activity, other specified; Y99.9 Unspecified external cause status; Z79.52 Long term (current) use of systemic steroids; Z79.82 Long term (current) use of aspirin; Z79.02 Long term (current) use of antithrombotics/antiplatelets; Z79.83 Long term (current) use of bisphosphonates; Z79.2 Long term (current) use of antibiotics; Z79.899 Other long term (current) drug therapy; Z23 Encounter for immunization

== ENCOUNTER → 2025-05-29 | Outpatient (CLI) | payer OTHER ==
[~2025-05-29] MED LIST changes: +AMOX875T2 PO; +HYDR12.510 PO; -HYDR12CA PO; -IBUP-1022 PO; +IBUP600T42 PO; +LAMO-18; -LAMO25TA4; +LIDO1ADH93 TOP; -LIDO5DIS41 TOP; +PRED20TA PO
[2025-05-29 17:39] LABS: PLATELET COUNT, AUTOMATED 194 10^3/uL (150-450)
[2025-05-29 17:56] LABS: ESTIMATED AVERAGE GLUCOSE 94.0 MG/DL (60-110)
[2025-05-29 18:06] LABS: ALT/SGPT 121 U/L (7.0-40); AST/SGOT 74 U/L (<34); CALCIUM LEVEL 9.2 MG/DL (8.5-10.1); CARBON DIOXIDE LEVEL 27 MMOL/L (20-31); CHLORIDE LEVEL 105 MMOL/L (98-107); CHOLESTEROL LEVEL 232 MG/DL (<200); CHOLESTEROL RISK RATIO 3.24 (<5); CREATININE FOR GFR 0.67 MG/DL (0.55-1.30); GLOMERULAR FILTRATION RATE > 90.0 (>58); IRON (FE) 66 UG/DL (50-170); LDL CHOLESTEROL 131.7 MG/DL (<100); MAGNESIUM LEVEL 2.0 MG/DL (1.8-2.4); NON-HDL-C 160.5 MG/DL; PERCENT SATURATION 17.2 % (13.2-45.0); POTASSIUM SERUM 5.1 MMOL/L (3.5-5.1); SODIUM LEVEL 141 MMOL/L (136-145); TRIGLYCERIDES LEVEL 144 MG/DL (<150)
[2025-05-29 18:07] LABS: FREE T4 0.91 NG/DL (0.89-1.76); VITAMIN B12 LEVEL 448 PG/ML (211-911)
== END ==
LOC: M PLALAB 15:19
PROVIDERS: ATTEND Nurse Practitioner Family
DX: E83.42 Hypomagnesemia (principal); E83.52 Hypercalcemia; E03.9 Hypothyroidism, unspecified; E53.8 Deficiency of other specified B group vitamins; Z13.220 Encounter for screening for lipoid disorders; Z13.1 Encounter for screening for diabetes mellitus; N92.6 Irregular menstruation, unspecified; Z12.11 Encounter for screening for malignant neoplasm of colon; G89.29 Other chronic pain

== ENCOUNTER → 2025-06-18 | Outpatient (CLI) | payer OTHER | LOC: M RAD 15:58 | PROVIDERS: ATTEND Nurse Practitioner Family | DX: N92.6 Irregular menstruation, unspecified (principal); R93.89 Abnormal findings on diagnostic imaging of other specified body structures ==